=== PATIENT | female | born 1975 | race Caucasian/White ===

== ENCOUNTER 2023-08-28 18:00 | Observation (INO) ==
--- NOTE | 2023-08-28 18:30 | Emergency Department Note ---
Impression & Plan Diarrhea ED Provider Note NAME: SUDHEER ALDRIDGE AGE: 48 SEX: F : 1975 ARRIVES VIA: Ambulance INFORMANT: Patient, ED PROVIDER(S): Oscar Fagan MD CHIEF COMPLAINT: Illness HPI: This is a 48-year-old female with history of diabetes, extensive diabetic complication including neuropathy, peripheral vascular disease status post bilateral BKA, hyperlipidemia, CAD, morbid obesity presenting for generalized illness. Patient states that she recently had a left BKA and was at a facility. She was discharged from there to home. Today she noted mild abdominal discomfort, diarrhea. No shortness of breath or chest pain. She mention she had 2 stents placed about a month ago, now totaling 4 stents in her heart. She notes that she is unable to take care of herself at home as she lives alone with 2 BKA's. ROS: See above HPI for pertinent positives & negatives. A total of 10 systems reviewed and were otherwise negative. PAST MEDICAL HISTORY: See Below PAST SURGICAL HISTORY: See Below FAMILY HISTORY: See Below SOCIAL HISTORY: See Below HOME MEDICATIONS: See Below ALLERGIES: See Below VITALS: See Below PHYSICAL EXAMINATION: General: Chronically ill-appearing, morbidly obese Head: Normocephalic Eyes: Normal inspection, extraocular muscles intact Ear, nose, throat: Normal external exam Neck: Normal range of motion Respiratory: lungs clear to auscultation bilaterally Cardiovascular: Regular rate/rhythm, no murmur GI: soft, nontender, no guarding or rebound Extremities: Bilateral BKA covered and wrapped, left BKA bandages covered in feces Neuro: The patient awake and alert, appropriately conversive, no focal deficits, symmetric faces Skin: Warm, dry, and intact MEDICAL DECISION MAKING: This is a 48-year-old female with history of diabetes, diabetic complication including neuropathy, PVD, bilateral BKA, hyperlipidemia, CAD, morbid obesity presenting for generalized illness. Patient notes abdominal discomfort, diarrhea and chills. Consider viral process. Patient has numerous diabetic complications. -Will order stool PCR -Stool PCR negative, viral upper respiratory panel negative -Hemoglobin of 10.5, dehydration with sodium 132, testing 3.3, chloride 97, hyperglycemia 256, no transaminitis -Urinalysis reveals yeast, bacteria, otherwise contaminated will await culture -Patient required mission for placement, diarrhea, dehydration External records reviewed including diabetic note showing patient noncompliance of diabetic care in the past from March 2023. Differential diagnosis: Deconditioning, inability to care for self at home, diarrhea, ER treatment provided: See below Diagnostics interpreted by me: ECG: None Cardiac Monitoring: An order was placed for continuous cardiac monitoring. The monitor shows a rate of 90 with sinus rhythm Laboratory studies: As stated above and show below. Imaging studies: See below. Past Med/Surg History Medical History (Updated 08/29/23 @ 01:36 by Oscar Fagan MD) Mammography less than 12 months ago Amputated toe Social History Smoking Status: Current some day smoker Preferred Language: Welsh Feels Safe at Home: No Allergies Allergies Allergy/AdvReac Type Severity Reaction Status Date / Time morphine Allergy Intermediate Rash Verified 08/28/23 18:54 mushroom Allergy Intermediate VOMITING/DI Verified 08/28/23 18:54 ARRHEA Home Meds Home Medications Medication Instructions Recorded Confirmed atorvastatin 80 mg tablet 80 mg PO DAILY 12/28/22 08/28/23 citalopram 40 mg tablet 40 mg PO DAILY 12/28/22 08/28/23 hydroxyzine HCl 50 mg tablet 50 mg PO TID PRN Itching 12/28/22 08/28/23 lancets 33 gauge (OneTouch Delica 12/28/22 04/17/23 Lancets) pen needle, diabetic 32 gauge x 12/28/22 04/17/23 1/" (Novofine 32) aspirin 81 mg tablet,delayed 81 mg PO DAILY 04/17/23 08/28/23 release (Adult Low Dose Aspirin) acetaminophen 325 mg tablet 650 mg PO Q6H PRN Pain (Scale 08/28/23 08/28/23 Score 4-6) bupropion HCl 150 mg tablet,12 hr 150 mg PO BID 08/28/23 08/28/23 sustained-release carvedilol 12.5 mg tablet 12.5 mg PO BID 08/28/23 08/28/23 clopidogrel 75 mg tablet (Plavix) 75 mg PO DAILY 08/28/23 08/28/23 furosemide 40 mg tablet 40 mg PO DAILY 08/28/23 08/28/23 gabapentin 100 mg capsule 100 mg PO QID 08/28/23 08/28/23 insulin glargine 100 unit/mL 40 unit subcut BID 08/28/23 08/28/23 subcutaneous solution polyethylene glycol 3350 17 gram 17 g PO DAILY 08/28/23 08/28/23 oral powder packet (Miralax) promethazine 12.5 mg tablet 25 mg PO Q6H PRN NAUSEA/VOMITING 08/28/23 08/28/23 Previous Rx's Medication Instructions Recorded OneTouch Verio Flex Start #1 ea 04/18/23 (blood-glucose meter) OneTouch Verio test strips (blood #200 ea 04/18/23 sugar diagnostic) Results & Data (ED) Vital Signs Vital Signs - 24 hr 08/28/23 17:40 08/28/23 17:40 08/28/23 18:13 Temperature 36.7 C Temperature Source Oral Pulse Rate 94 H Pulse Rate [Right Finger] 90 Pulse Rhythm [Right Finger] Regular Pulse Strength [Right Finger] Normal Respiratory Rate 18 Respiratory Effort / Characteristics Non-Labored Spontaneous Respiratory Depth Normal Respiratory Pattern Regular Blood Pressure [Right Arm] 103/70 Blood Pressure Mean [Right Arm] 81 Pulse Oximetry 97 Oxygen Delivery Method Room Air Sepsis Recent Fever Within 48 Hours No Sepsis New/Unexplained Change in Mental Status No Sepsis Action Taken by Nursing No Action Required 08/28/23 22:16 Temperature Temperature Source Pulse Rate 100 H Pulse Rate [Right Finger] Pulse Rhythm [Right Finger] Pulse Strength [Right Finger] Respiratory Rate Respiratory Effort / Characteristics Respiratory Depth Respiratory Pattern Blood Pressure [Right Arm] Blood Pressure Mean [Right Arm] Pulse Oximetry Oxygen Delivery Method Sepsis Recent Fever Within 48 Hours Sepsis New/Unexplained Change in Mental Status Sepsis Action Taken by Nursing Laboratory Data 08/28/23 18:50 08/28/23 18:50 Lab Results 08/28/23 08/28/23 Range/Units 18:50 Unknown WBC 7.59 (4.8-10.8) K/ul RBC 3.53 L (4.20-5.40) M/uL Hgb 10.5 L (12.0-16.0) g/dl Hct 32.5 L (37.0-47.0) % MCV 92.1 (80.0-100.0) fL MCH 29.7 (25.0-34.0) pg MCHC 32.3 (32.0-36.0) g/dL RDW Std Deviation 50.9 H (36.4-46.3) fL RDW Coeff of Travis 15.1 H (11.5-14.5) % Plt Count 318 (130-400) K/uL MPV 12.5 H (9.4-12.4) fL Immature Gran % (Auto) 0.7 % Neut % (Auto) 60.8 % Lymph % (Auto) 25.6 % [place] % (Auto) 9.0 % Eos % (Auto) 3.4 % Baso % (Auto) 0.5 % Neut # (Auto) 4.62 (1.40-6.50) K/uL Lymph # (Auto) 1.94 (1.20-3.40) K/uL [place] # (Auto) 0.68 H (0.11-0.59) K/uL Eos # (Auto) 0.26 (0.00-0.50) K/uL Baso # (Auto) 0.04 (0.00-0.20) K/uL Immature Gran # (Auto) 0.05 (0.01-0.20) K/uL Sodium 132 L (136-145) mmol/L Potassium 3.3 L (3.5-5.1) mmol/L Chloride 97 L (98-107) mmol/L Carbon Dioxide 24 (21-32) mmol/L Anion Gap 11 (3-11) BUN 15 (6-23) mg/dl Creatinine 1.18 (0.6-1.2) mg/dl Est Cr Clr Drug Dosing Not Reportable Est GFR ( Amer) 63.2 ml/min Est GFR (Non-Af Amer) 54.5 ml/min BUN/Creatinine Ratio 12.7 (10-20) Glucose 256 H (70-99(Fasting)) mg/dl Calcium 8.4 L (8.6-10.3) mg/dl Total Bilirubin 1.0 (0.2-1.0) mg/dl AST 17 (13-39) U/L ALT 13 (7-52) U/L Alkaline Phosphatase 88 (34-104) U/L Total Protein 7.1 (6.0-8.3) gm/dl Albumin 3.4 (3.4-5.0) gm/dl Globulin 3.7 (2.5-4.0) gm/dl Albumin/Globulin Ratio 0.9 (0.9-2) Urine Color Yellow Urine Appearance Cloudy A (Clear) Urine pH 5.0 (4.5-7.5) Ur Specific [place] 1.016 (1.000-1.030) Urine Protein 2+ H (Negative) Urine Glucose (UA) Negative (Negative) Urine Ketones Negative (Negative) Urine Blood Negative (Negative) Urine Nitrite Negative (Negative) Urine Bilirubin Negative (Negative) Urine Urobilinogen Negative (Negative) Ur Leukocyte Esterase 2+ H (Negative) Urine WBC (Auto) >30 H (0-5) /hpf Urine RBC (Auto) 0-4 (0-4) /hpf U Hyaline Cast (Auto) 5-10 H (0-5) /lpf U Epithel Cells (Auto) >30 H (0-5) /lpf Urine Bacteria (Auto) Negative (Negative) Ur Renal Epithelial Cell Not Reportable Urine Yeast Budding A (None Prsent) Stl C. cayetanensis PCR Not Detected (NotDetected) Stool Rotavirus A PCR Not Detected (NotDetected) Stl Adenov F 40/41 PCR Not Detected (NotDetected) Stool Astrovirus (PCR) Not Detected (NotDetected) Stool Campylobacter PCR Not Detected (NotDetected) Stl C. diff Tox B Gene Positive Cdiff Gene H (Neg) Stl C.difficile Tox A&B Negative Cdiff Toxin (Negative) Stool Cryptosporidium PCR Not Detected (NotDetected) Stl E.coli Shiga Tox PCR Not Detected (NotDetected) Stl Enterotoxigenic E PCR Not Detected (NotDetected) Stool EPEC (PCR) Not Detected (NotDetected) Stool EAEC (PCR) Not Detected (NotDetected) Stl E. histolytica PCR Not Detected (NotDetected) Stool Giardia Lamblia PCR Not Detected (NotDetected) Stool Salmonella PCR Not Detected (NotDetected) Stool Sapovirus (PCR) Not Detected (NotDetected) Stl P. shigelloides PCR Not Detected (NotDetected) Stl Shigella/EIEC PCR Not Detected (NotDetected) St Y.enterocolitica PCR Not Detected (NotDetected) Stool Vibrio (PCR) Not Detected (NotDetected) Stl Vibrio cholerae PCR Not Detected (NotDetected) Stl Norovirus GI/GII PCR Not Detected (NotDetected) Adenovirus (PCR) Not Detected (NotDetected) B. pertussis DNA (PCR) Not Detected (NotDetected) B.parapertussis DNA PCR Not Detected (NotDetected) C. pneumoniae DNA (PCR) Not Detected (NotDetected) Coronavirus OC43 (PCR) Not Detected (NotDetected) Coronavirus HKU1 (PCR) Not Detected (NotDetected) Coronavirus 229E (PCR) Not Detected (NotDetected) SARS-CoV-2 (PCR) Not Detected (NotDetected) Coronavirus NL63 (PCR) Not Detected (NotDetected) Human Metapneumovir PCR Not Detected (NotDetected) Influenza Type A (PCR) Not Detected (NotDetected) Influenza Type B (PCR) Not Detected (NotDetected) M. pneumoniae (PCR) Not Detected (NotDetected) Parainfluenza 1 (PCR) Not Detected (NotDetected) Parainfluenza 2 (PCR) Not Detected (NotDetected) Parainfluenza 3 (PCR) Not Detected (NotDetected) Parainfluenza 4 (PCR) Not Detected (NotDetected) RSV (PCR) Not Detected (NotDetected) Entero/Rhino (PCR) Not Detected (NotDetected) Administered Medications Discontinued Medications Ioversol (Optiray 320 500ml) 100 ml IV ONCE ONE Stop: 08/29/23 00:20 Last Admin: 08/29/23 00:20 Dose: 81 ml Documented By: JOSE Imaging Data Radiologist's Impression: Chest X-Ray 08/28/23 18:21 XR chest 1V not portable HISTORY: Illness COMPARISON: None. FINDINGS: There are low lung volumes. No pneumothorax. No pleural effusions. The heart is mildly enlarged. There is diffuse interstitial thickening. This could be technical from the patient's body habitus. There is mild elevation of the right hemidiaphragm. No focal lung consolidations to suggest a pneumonia. IMPRESSION: 1. Diffuse interstitial thickening which could be technical or represent mild congestive change. 2. Mild cardiomegaly. ACT 112: Negative or not required by law. Electronically signed by: Lj Anaya M.D. 08/28/2023 7:03 PM Discharge Plan Visit Data Chief Complaint: Illness Stated Complaint: GEN. ILLNESS, RECENT LEG AMPUTEE ED Provider: Oscar Fagan Discharge Problem: Diarrhea Forms Stand Alone Forms: My [facility] Prescriptions Prescriptions: No Action aspirin [Adult Low Dose Aspirin] 81 mg tablet,delayed release (DR/EC) 81 mg PO DAILY (DME) blood-glucose meter [First [employer] Group[employer] Verio Flex Start] Kit See Rx Instructions .ROUTE .MEDSUPPLY Qty: 1 0RF Rx Instructions: As directed (DME) OneTouch Verio test strips Strip See Rx Instructions .ROUTE .MEDSUPPLY Qty: 200 3RF Rx Instructions: test 2 times daily citalopram 40 mg tablet 40 mg PO DAILY (DME) pen needle, diabetic [Novofine 32] 32 gauge x 1/4" needle See Rx Instructions .Route Rx Instructions: use 5 x daily (DME) lancets [[employer]Touch Delica Lancets] 33 gauge misc See Rx Instructions .Route Rx Instructions: test blood sugar 3 x daily atorvastatin 80 mg tablet 80 mg PO DAILY hydroxyzine HCl 50 mg tablet 50 mg PO TID PRN (Reason: Itching) furosemide 40 mg tablet 40 mg PO DAILY bupropion HCl 150 mg tablet sustained-release 12 hr 150 mg PO BID acetaminophen 325 mg tablet 650 mg PO Q6H PRN (Reason: Pain (Scale Score 4-6)) carvedilol 12.5 mg tablet 12.5 mg PO BID insulin glargine 100 unit/mL solution 40 unit SUBCUT BID polyethylene glycol 3350 [Miralax] 17 gram Powder In Packet 17 g PO DAILY promethazine 12.5 mg tablet 25 mg PO Q6H PRN (Reason: NAUSEA/VOMITING) clopidogrel [Plavix] 75 mg Tablet 75 mg PO DAILY gabapentin 100 mg Capsule 100 mg PO QID Referrals Referrals: Ryland Jeffrey DO [Primary Care Provider] -
--- NOTE | 2023-08-28 19:04 | XRay Report ---
XR chest 1V not portable HISTORY: Illness COMPARISON: None. FINDINGS: There are low lung volumes. No pneumothorax. No pleural effusions. The heart is mildly enla rged. There is diffuse interstitial thickening. This could be technical from the patient's body habit us. There is mild elevation of the right hemidiaphragm. No focal lung consolidations to suggest a pne umonia. IMPRESSION: 1. Diffuse interstitial thickening which could be technical or represent mild congestive change. 2. Mild cardiomegaly. ACT 112: Negative or not required by law. Electronically signed by: Lj Anaya M.D. 08/28/2023 7:03 PM
[2023-08-28 19:10] LABS: Appearance Urine Cloudy (Clear); Bacteria Urine Automated Negative (Negative); Bilirubin Urine Negative (Negative); Blood Urine Negative (Negative); Color Urine Yellow; Epithelial Cell Urine Auto >30 /lpf (0-5); Glucose Urine UA Negative (Negative); Ketones Urine Negative (Negative); Leukocyte Esterase Urine 2+ (Negative); Nitrite Urine Negative (Negative); Protein Urine 2+ (Negative); RBC Urine Automated 0-4 /hpf (0-4); Specific Gravity Urine 1.016 (1.000-1.030); Urobilinogen Urine Negative (Negative); WBC Urine Automated >30 /hpf (0-5)
[2023-08-28 19:12] LABS: Basophils # (auto) 0.04 K/uL (0.00-0.20); Basophils % (auto) 0.5 %; Eosinophils # (auto) 0.26 K/uL (0.00-0.50); Eosinophils % (auto) 3.4 %; Hematocrit (blood only) 32.5 % (37.0-47.0); Hemoglobin 10.5 g/dl (12.0-16.0); Immature Granulocytes # (auto) 0.05 K/uL (0.01-0.20); Immature Granulocytes % (auto) 0.7 %; Lymphocytes # (auto) 1.94 K/uL (1.20-3.40); Lymphocytes % (auto) 25.6 %; Mean Corpuscular Hemoglobin 29.7 pg (25.0-34.0); Mean Corpuscular Hgb Conc 32.3 g/dL (32.0-36.0); Mean Corpuscular Volume 92.1 fL (80.0-100.0); Mean Platelet Volume 12.5 fL (9.4-12.4); Monocytes # (auto) 0.68 K/uL (0.11-0.59); Neutrophils # (auto) 4.62 K/uL (1.40-6.50); Neutrophils % (auto) 60.8 %; Platelet Count 318 K/uL (130-400); RDW Coefficient of Variation 15.1 % (11.5-14.5); RDW Standard Deviation 50.9 fL (36.4-46.3); Red Blood Count 3.53 M/uL (4.20-5.40); White Blood Count 7.59 K/ul (4.8-10.8)
[2023-08-28 19:28] LABS: Alanine Aminotransferase 13 U/L (7-52); Albumin Globulin Ratio 0.9 (0.9-2); Albumin Level 3.4 gm/dl (3.4-5.0); Alkaline Phosphatase 88 U/L (34-104); Anion Gap 11 (3-11); Aspartate Aminotransferase 17 U/L (13-39); BUN Creatinine Ratio 12.7 (10-20); Blood Urea Nitrogen 15 mg/dl (6-23); Calcium 8.4 mg/dl (8.6-10.3); Carbon Dioxide 24 mmol/L (21-32); Chloride 97 mmol/L (98-107); Est GFR (African American) 63.2 ml/min; Est GFR (Non-African American) 54.5 ml/min; Globulin 3.7 gm/dl (2.5-4.0); Glucose 256 mg/dl (70-99(Fasting)); Potassium 3.3 mmol/L (3.5-5.1); Sodium 132 mmol/L (136-145); Total Protein 7.1 gm/dl (6.0-8.3)
[2023-08-28 20:22] LABS: Adenovirus PCR Not Detected (NotDetected); Bordetella parapertussis PCR Not Detected (NotDetected); Bordetella pertussis PCR Not Detected (NotDetected); Chlamydia pneumoniae PCR Not Detected (NotDetected); Coronavirus 229E PCR Not Detected (NotDetected); Coronavirus CoV-2 (COVID19)PCR Not Detected (NotDetected); Coronavirus HKU1 PCR Not Detected (NotDetected); Coronavirus NL63 PCR Not Detected (NotDetected); Coronavirus OC43PCR Not Detected (NotDetected); Human Metapneumovirus PCR Not Detected (NotDetected); Influenza A PCR Not Detected (NotDetected); Influenza B PCR Not Detected (NotDetected); Mycoplasma pneumoniae PCR Not Detected (NotDetected); Parainfluenza Virus 1 PCR Not Detected (NotDetected); Parainfluenza Virus 2 PCR Not Detected (NotDetected); Parainfluenza Virus 3 PCR Not Detected (NotDetected); Parainfluenza Virus 4 PCR Not Detected (NotDetected); Respiratory Syncytial VirusPCR Not Detected (NotDetected); Rhinovirus/Enterovirus PCR Not Detected (NotDetected)
[2023-08-28 22:03] LABS: Adenovirus F 40/41 PCR Not Detected (NotDetected); Astrovirus PCR Not Detected (NotDetected); Campylobacter PCR Not Detected (NotDetected); Cryptosporidium PCR Not Detected (NotDetected); Cyclospora cayetanensis PCR Not Detected (NotDetected); Entamoeba histolytica PCR Not Detected (NotDetected); Enteroaggregative E.coli(EAEC) Not Detected (NotDetected); Enteropathogenic E.coli (EPEC) Not Detected (NotDetected); Enterotoxigenic E.coli (ETEC) Not Detected (NotDetected); Giardia lamblia PCR Not Detected (NotDetected); Norovirus GI/GII PCR Not Detected (NotDetected); Plesiomonas shigelloides PCR Not Detected (NotDetected); Rotavirus A PCR Not Detected (NotDetected); Salmonella PCR Not Detected (NotDetected); Sapovirus PCR Not Detected (NotDetected); Shiga-like Toxin E.coli (STEC) Not Detected (NotDetected); Shigella/Enteroinvasive E.coli Not Detected (NotDetected); Vibrio cholerae PCR Not Detected (NotDetected); Vibrio species PCR Not Detected (NotDetected); Yersinia enterocolitica PCR Not Detected (NotDetected)
--- NOTE | 2023-08-28 22:38 | History & Physical Report ---
Date of Service August 28, 2023 Assessment & Plan (1) Abdominal pain: Plan: -Suspect this is driven by viral GI illness though given pt's multiple comorbidities including uncontrolled DM2 w/ complications, this may be contributory as well -Reassuring that pt is hemodynamically stable, afebrile and without leukocytosis, though with LLQ tenderness on exam, will obtain CTAP to r/o organ pathology including diverticulitis -Tylenol PRN pain (2) Diarrhea: Plan: -Watery diarrhea accompanying aforementioned abdominal pain -GI panel pending including clostridial testing -CTAP as above -Fluid repletion ongoing due to GI losses -Monitor BMP, electrolytes (3) Unable to care for self: Plan: -Pt has not been able to accomplish ADLs especially following her second BKA, now b/l BKA and living alone with generalized weakness and multiple comorbidities -PT/OT, anticipate need for SNF (4) Diabetes mellitus type 2 with complications: Plan: -Poorly controlled DM2 w/ multiple complications including nephropathy and neuropathy along with PAD s/p b/l BKA -See last diabetes visit note from endocrinology for further information -Last A1C 9.2% in 12/2022, will repeat in AM -Continue gabapentin, Celexa for neuropathy -Lantus, SSI in hospital (5) Coronary artery disease: Plan: -CAD s/p PCI w/ TARIK, currently 4 stents -No ACS concern at present given lack of chest pain and reassuring EKG on admis magdi -Continue carvedilol, Plavix, aspirin, atorvastatin (6) Hyperlipidemia: Plan: -Continue atorvastatin (7) Hypertension: Plan: -BP stable at present -Continue carvedilol (8) Depression with anxiety: Plan: -Continue Celexa, Wellbutrin -Home Atarax PRN anxiety (used for itching per medication list) (9) Pulmonary vascular congestion: Plan: -Noted on CXR w/ mild cardiomegaly + interstitial thickening -As pt is currently w/o respiratory complaints and saturating well on RA w/ clear lung exam, will defer any diuresis beyond home Lasix (10) Hypokalemia: Plan: -Mild hypokalemia 3.3 on admission -Repleted with oral K -Monitor BMP, will check Mg as well (11) Hyponatremia: Plan: -Mild hyponatremia 132 on admission -Likely due to dehydration -Fluid repletion ongoing -Monitor BMP (12) Anemia: Plan: -Hgb 10.5 on admission, normocytic -Likely anemia for chronic disease though her baseline is unclear from chart due to minimal data -No suspected bleeding at present -Iron panel added to AM labs Plan FENGI: DM2 Code status: Full DVT prophylaxis: Lovenox BID Isolation: None Unit: Medical/surgical Disposition planning: Likely SNF History of Present Illness Chief Complaint: Generalized weakness Primary Care Provider: Ryland Jeffrey DO Pt is 48 yo F with PMH IDDM2 w/ nephropathy + neuropathy, PAD s/p b/l BKA (R 2019, L 07/2023), HTN, HLD, CAD s/p PCI w/ TARIK x4, depression, anxiety, morbid obesity presenting with generalized weakness. Pt reports onset of generalized weakness and pain, diffuse mild abdominal pain and watery diarrhea on day prior. She did recently have L BKA done at end of 07/2023 and was discharged from rehab to home, also had PR s/p PCI w/ stent placement x2 about 1 month prior. Pt states she has not been feeling well for quite some time but her GI symptoms are new and this is primarily why she came to ER. Denies fever, chills, chest pain, dyspnea. Pt arrived to ER hemodynamically stable. Initial evaluation significant for Hgb 10.5, Na 132, K 3.3, BSG 256. UA grossly infected though without bacteria, containing epithelial cells. RVP negative. CXR w/ mild cardiomegaly and inter stitial thickening, pulmonary vascular congestion. No ER interventions done. At present, pt reports no new symptoms. Allergies Allergy/AdvReac Type Severity Reaction Status Date / Time morphine Allergy Intermediate Rash Verified 08/28/23 18:54 mushroom Allergy Intermediate VOMITING/DI Verified 08/28/23 18:54 ARRHEA Home Medications Medication Instructions Recorded Confirmed Type atorvastatin 80 mg tablet 80 mg PO DAILY 12/28/22 08/28/23 History citalopram 40 mg tablet 40 mg PO DAILY 12/28/22 08/28/23 History hydroxyzine HCl 50 mg tablet 50 mg PO TID PRN Itching 12/28/22 08/28/23 History lancets 33 gauge (OneTouch Delica 12/28/22 04/17/23 History Lancets) pen needle, diabetic 32 gauge x 12/28/22 04/17/23 History 1/4" (Novofine 32) aspirin 81 mg tablet,delayed 81 mg PO DAILY 04/17/23 08/28/23 History release (Adult Low Dose Aspirin) OneTouch Verio Flex Start #1 ea 04/18/23 04/18/23 Rx (blood-glucose meter) OneTouch Verio test strips (blood #200 ea 04/18/23 04/18/23 Rx sugar diagnostic) acetaminophen 325 mg tablet 650 mg PO Q6H PRN Pain (Scale 08/28/23 08/28/23 History Score 4-6) bupropion HCl 150 mg tablet,12 hr 150 mg PO BID 08/28/23 08/28/23 History sustained-release carvedilol 12.5 mg tablet 12.5 mg PO BID 08/28/23 08/28/23 History clopidogrel 75 mg tablet (Plavix) 75 mg PO DAILY 08/28/23 08/28/23 History furosemide 40 mg tablet 40 mg PO DAILY 08/28/23 08/28/23 History gabapentin 100 mg capsule 100 mg PO QID 08/28/23 08/28/23 History insulin glargine 100 unit/mL 40 unit subcut BID 08/28/23 08/28/23 History subcutaneous solution polyethylene glycol 3350 17 gram 17 g PO DAILY 08/28/23 08/28/23 History oral powder packet (Miralax) promethazine 12.5 mg tablet 25 mg PO Q6H PRN NAUSEA/VOMITING 08/28/23 08/28/23 History Past Med/Surg History Medical History (Updated 08/29/23 @ 01:36 by Oscar Fagan MD) Mammography less than 12 months ago Amputated toe Social History Smoking Status: Current every day smoker Tobacco Type: Cigarettes Cigarettes Per Day: a couple cigarettes a day; Hx Alcohol Use: Yes Hx Substance Use: No Preferred Language: Portuguese Communication Ability: Effective Payable Processor Required: No Beliefs That Will Affect Care: None Current Living Situation: Alone Feels Safe at Home: Yes Safety Concerns: Feels Safe At This Time Assistive Devices: Cane, Walker and Wheelchair Assistive Devices Comment: prosthesis right lower extremity Review of Systems Review of Systems: Per HPI/Subjective Physical Exam Physical Exam: General: tired-appearing, no acute distress HEENT: PERRL, EOMI, conjunctivae clear without injection, anicteric sclerae, dry mucous membranes, clear oropharynx without exudate or erythema Neck: supple, trachea midline, no thyromegaly, no JVD, no cervical lymphadenopathy CV: RRR, normal S1 and S2, no murmurs Resp: Clear breath sounds b/l, no increased work of breathing, no crackles or wheezes Abd: Soft, mildly tender to LLQ, nondistended, no guarding or rebound, no hepatosplenomegaly MSK: B/l BKA with RLE stump covered in dressing, L BKA exposed and clean, dry, intact wound + sutures without bleeding Neuro: AOx3 Skin: no rashes or lesions, warm and dry Results & Data Results & Data Vital Signs (Past 12 Hours) Vital Signs Temp Pulse Pulse Resp BP Pulse Ox O2 Del Method 08/28/23 22:16 100 H 08/28/23 18:13 94 H 08/28/23 17:40 36.7 C 90 18 103/70 97 Room Air Supervising Physician Co-Signing Physician Notes Attending addendum: I have physically seen this patient, have supervised the medical residents activities, and agree with the H&P unless as otherwise noted. Assessment and Plan: Diarrhea/abdominal pain- CT scan abdomen and pelvis ordered and pending Stool PCR pending BioFire pending Supportive treatment with IV fluids Follow serial renal function panel Diabetes mellitus type 2- Accompanying nephropathy and neuropathy History of PAD with bilateral BKA's General debilitation/unable to care for herself Status post bilateral BKA's, with decreased ability to perform ADLs Consult PT/OT Consult social service agency director Will need to be [facility] in [facility] placement with [facility] facility CAD/hypertension/PCI with TARIK/total 4 stents Continue carvedilol, clopidogrel, aspirin and atorvastatin Remaining orders and notations as noted Resident Activity Tracking Resident Involvement: Resident Care Provided Care Provided: Adult [facility] Medicine
[2023-08-29] MEDS: OPTIRAY 320 500ml IV ONE (00:20)
[2023-08-29 00:40] LABS: Cdiff Toxin B Gene (2yr or >) Positive Cdiff Gene (Neg)
[2023-08-29 01:07] LABS: Cdiff Antigen Negative; Cdiff Toxin A+B Negative Cdiff Toxin (Negative)
[2023-08-29] MEDS ORDERED: PROMETHAZINE HCL 25 MG TAB PO PRN (02:01)
[2023-08-29] MEDS ORDERED: GLUCAGON FOR INJ 1 MG VIAL SQ PRN (02:01)
[2023-08-29] MEDS ORDERED: GLUCOSE 10 TAB/TUBE PO PRN (02:01)
[2023-08-29] MEDS ORDERED: CARBOHYDRATES FOR HYPOGLYCEMIA PO PRN (02:01)
[2023-08-29] MEDS: Patient's HEIGHT &/or WEIGHT Needed STA (02:19)
--- NOTE | 2023-08-29 02:40 | CT Scan Report ---
Exam(s): CT ABDOMEN + PELVIS With Contrast IV Amt: 81 ML OPTIRAY 320 EXAM: CT Abdomen and Pelvis With Intravenous Contrast CLINICAL HISTORY: Reason for exam: LLQ pain, evaluate diverticulitis. TECHNIQUE: Axial computed tomography images of the abdomen and pelvis with intravenous contrast. CTDI is 34.95 mGy and DLP is 1922.42 mGy-cm. Automated exposure control was utilized for the study. A dose lowering technique was utilized adhering to the principles of ALARA. CONTRAST: Patient received 81 ML OPTIRAY 320 of IV contrast COMPARISON: No relevant prior studies available. FINDINGS: Lung bases: Smooth septal thickening in the lung bases concerning for fluid overload. Peripheral nodular densities in the right middle lobe measuring up to 0.9 cm. No consolidation. ABDOMEN: Liver: Unremarkable. No mass. Gallbladder and bile ducts: Unremarkable. No calcified stones. No ductal dilation. Pancreas: Unremarkable. No mass. No ductal dilation. Spleen: Unremarkable. No splenomegaly. Adrenals: Unremarkable. No mass. Kidneys and ureters: Unremarkable. No solid mass. No hydronephrosis. Stomach and bowel: Unremarkable. No obstruction. No mucosal thickening. PELVIS: Appendix: No findings to suggest acute appendicitis. Bladder: Unremarkable. No mass. Reproductive: Unremarkable as visualized. ABDOMEN and PELVIS: Intraperitoneal space: Unremarkable. No free air. No significant fluid collection. Bones/joints: No acute fracture. No dislocation. Soft tissues: Unremarkable. Vasculature: Unremarkable. No abdominal aortic aneurysm. Lymph nodes: Unremarkable. No enlarged lymph nodes. IMPRESSION: 1. No acute abdominal or pelvic process. 2. Smooth septal thickening in the lung bases concerning for fluid overload. 3. Peripheral nodular densities in the right middle lobe measuring up to 0.9 cm. Electronically signed by: Anselmo Fagan M.D. 08/29/23 02:39 AM
[2023-08-29] MEDS: LACTATED RINGER'S 1,000 ML IV SCH (02:43)
[2023-08-29] MEDS: POTASSIUM CHLORIDE CRTAB 20 MEQ TABCR PO STA ×2 (02:43→08:47)
[2023-08-29] MEDS: FUROSEMIDE INJ 20 MG/2 ML VIAL IV ONE (05:54)
[2023-08-29 06:08] LABS: Hematocrit (blood only) 30.8 % (37.0-47.0); Hemoglobin 9.8 g/dl (12.0-16.0); Mean Corpuscular Hemoglobin 29.3 pg (25.0-34.0); Mean Corpuscular Hgb Conc 31.8 g/dL (32.0-36.0); Mean Corpuscular Volume 91.9 fL (80.0-100.0); Mean Platelet Volume 12.3 fL (9.4-12.4); Platelet Count 282 K/uL (130-400); RDW Coefficient of Variation 15.2 % (11.5-14.5); RDW Standard Deviation 50.8 fL (36.4-46.3); Red Blood Count 3.35 M/uL (4.20-5.40); White Blood Count 6.63 K/ul (4.8-10.8)
[2023-08-29 06:21] LABS: Calcium 8.4 mg/dl (8.6-10.3); Creatinine Clr Calc Pharmacy 86.3 ml/min; Est GFR (African American) 70.3 ml/min; Est GFR (Non-African American) 60.7 ml/min; Magnesium 1.6 mg/dl (1.7-2.4); Phosphorus 4.9 mg/dl (2.5-4.9); Potassium 3.3 mmol/L (3.5-5.1)
[2023-08-29 06:38] LABS: Ferritin 206.5 ng/ml (8-388)
[2023-08-29 06:57] LABS: Estimated Average Glucose 180 mg/dl; Hemoglobin A1C 7.9 % (4.5-5.6)
[2023-08-29] MEDS: INSULIN ASPART PER UNIT CHARGE SC SCH (08:30)
[2023-08-29] MEDS: MAGNESIUM SULFATE / D5W 1 GM/100 ML BAG IV SCH (08:47)
[2023-08-29] MEDS: GABAPENTIN 100 MG CAP PO SCH (08:48)
[2023-08-29] MEDS: ASPIRIN 81 MG ECTAB PO SCH (08:48)
[2023-08-29] MEDS: CITALOPRAM 40 MG TAB PO SCH (08:48)
[2023-08-29] MEDS: FUROSEMIDE 40 MG TAB PO SCH (08:48)
[2023-08-29] MEDS: carvediloL 12.5 MG TAB PO SCH (08:48)
[2023-08-29] MEDS: buPROPion SR 150 MG TABCR PO SCH (08:48)
[2023-08-29] MEDS: CLOPIDOGREL BISULFATE 75 MG TAB PO SCH (08:49)
[2023-08-29] MEDS: ENOXAPARIN INJ 40 MG/0.4 ML SYR SQ SCH (08:49)
[2023-08-29] MEDS: ATORVASTATIN 40 MG TAB PO SCH (08:49)
[2023-08-29] MEDS: POLYETHYLENE (MIRALAX) 17 GM PACK PO SCH (08:50)
[2023-08-29] MEDS: LANTUS PER UNIT CHARGE SQ SCH (08:50)
--- NOTE | 2023-08-29 10:05 | Hospitalist Progress Note ---
Date of Service August 29, 2023 Assessment & Plan (1) Abdominal pain: Plan: -CT of abdomen/Pelvis revealed Smooth septal thickening in the lung bases concerning for fluid overload and Peripheral nodular densities in the right middle lung lobe measuring up to 0.9 cm. -This could be driven by GI illness, patients multiple comorbidities including uncontrolled DM2 with complications, and patients medications -Reassuring that pt is hemodynamically stable, afebrile and without leukocytosis, though with lower quadrant abdominal tenderness on exam -Tylenol PRN pain -Patient will receive 500 cc bolus (2) Diarrhea: Plan: -Watery diarrhea accompanying aforementioned abdominal pain -GI panel positive for C. difficile although patient's symptoms are more mild, she could be a C. Diff carrier -CTAP as above -Fluid repletion ongoing due to GI losses -Monitor BMP, electrolytes (3) Unable to care for self: Plan: -Pt has not been able to accomplish ADLs especially following her second BKA, now b/l BKA and living alone with generalized weakness and multiple comorbidities -PT/OT consulted, anticipate need for SNF (4) Diabetes mellitus type 2 with complications: Plan: -Poorly controlled DM2 w/ multiple complications including nephropathy and neuropathy along with PAD s/p b/l BKA. See last diabetes visit note from endocrinology for further information -Last A1C 9.2% in 12/2022, current A1C from 08/29 is at 7.9 -Continue gabapentin, Celexa for neuropathy -Lant, SSI in hospital (5) Coronary artery disease: Plan: -CAD s/p PCI w/ TARIK, currently 4 stents -No ACS concern at present given lack of chest pain and reassuring EKG on admission -Echocardiogram done and revealed no regional wall abnormalities with normal left ventricular systolic function and EF= 55-60%. There was borderline concentric left ventricular hypertrophy and mild mitral regurgitation. -Continue carvedilol, Plavix, aspirin, atorvastatin (6) Hyperlipidemia: Plan: -Continue atorvastatin (7) Hypertension: Plan: -BP stable at present -Continue carvedilol (8) Depression with anxiety: Plan: -Continue Celexa, Wellbutrin -Home Atarax PRN anxiety (used for itching per medication list) (9) Pulmonary vascular congestion: Plan: -Noted on CXR w/ mild cardiomegaly + interstitial thickening -As pt is currently w/o respiratory complaints and saturating well on RA w/ clear lung exam, will defer any diuresis beyond home Lasix (10) Hypokalemia: Plan: -Mild hypokalemia 3.3 and magnesium at 1.6 -Repleted with oral K -Monitor BMP (11) Hyponatremia: Plan: -Mild hyponatremia 132 on admission, but trending upward and currently at 134 -Likely due to dehydration and Fluid repletion ongoing -Monitor BMP (12) Anemia: Plan: -Hgb 10.5 on admission and currently at 9.8 -Likely anemia for chronic disease though her baseline is unclear; Iron is at 34 and Ferritin at 206.5 -No suspected bleeding at present -Iron panel added to AM labs Plan FENGI: DM2 Code status: Full DVT prophylaxis: Lovenox BID Isolation: None Unit: Medical/surgical Disposition planning: Likely SNF Admission and Anticipated Discharge Date Admission Date: August 28, 2023 Supervising Physician Co-Signing Physician Notes I personally examined the patient and verified all iverson points of history and exam, discussed case, and agree with decision making with Dr Soto and Mercedes Duggan MS2 Pain in her leg, loose stools? Versus more frequent stools 3 times so far todayshe has not looked but notes that it feels solid, she had apparent diarrhea in the ambulance on the way in. No significant fevers chills or sweats. Feels significant fatigue. Has a vague degree of shortness of breath on exertion is not really better or worse otherwise at any period of time, has been getting fluids over the last half hour or so and her breathing has not been feeling worse. Vitals noted, in general she is extremely fatigued but otherwise no distress. HEENT normocephalic atraumatic mucous membranes moist. Abdomen is soft may be mild diffuse tenderness no guarding rebound or rigidity. Left lower extremity stump wound appears to be healing well there are a large amount of izaiah, no fluctuance no tenderness no erythema. leg pain - nothing appearing overtly concerning. pain control, obtain records - there are a lot of izaiah, i wonder if a good deal of pain is regular wound healing for large area + izaiah pulling? follow abdominal symptoms - hard to really gauge diarrhea vs abnormal stool pattern for her/favor loose? stool testing most c/w Cdiff carrier and symptoms also not c/w active infection - follow/serial exams fatigue - PT/OT eval and treat does not appear to have clinically significant pulmonary edema, suspect she is dry, breathing did not worsen with small fluid bolus. may need to continue IV fluids - follow. suspect dyspnea is more borne of fatigue/deconditioning. otherwise as above Subjective Florinda Hill is a 48 yo F with PMH Type 2 Diabetes w/ nephropathy, peripheral vascular disease status post bilateral below knee amputation (R 2019, L 07/2023), HTN, HLD, CAD s/p PCI w/ TARIK x4, depression, anxiety, morbid obesity presenting with generalized weakness. Pt reports onset of generalized weakness and pain, diffuse mild abdominal pain and watery diarrhea on day prior. She did recently have L below knee amputation done at the end of 07/2023 and was discharged from rehab to home, also had IN s/p PCI w/ stent placement x2 about 1 month prior. Pt states she has not been feeling well for quite some time but her GI symptoms are new and this is primarily why she came to ER. Denies fever, chills, chest pain, dyspnea. Pt arrived to ER hemodynamically stable. Initial evaluation significant for Hgb 10.5, Na 132, K 3.3, blood glucose 256. UA grossly infected though without bacteria, containing epithelial cells. RVP negative. CXR w/ mild cardiomegaly and interstitial thickening, pulmonary vascular congestion. No ER interventions done. Currently, patient reports generalized weakness, she is not able to ambulate due to the weakness. She has had nausea and vomiting in the morning for years and usually feels better after a few hours in the morning. Although blood was found in her stools, patient reports that she does not know how long this has persisted. She feels shortness of breath upon any kind of movement. She also has generalized lower abdominal pain that is non specific. She is not sure if this pain or her symptoms worsen before or after eating. Patient denies dysuria, urinary retention, urinary urgency, and hematuria. Review of Systems Review of Systems: General: Reports fatigue, generalized pain, and weakness. Denies fevers, chills, unintentional weightloss Respiratory: Reports shortness of breath upon any kind of exertion or movement. Denies cough and chest pain Cardiovascular: Denies lower extremity edema and palpitations MSK: Patient has bilateral BKA. Reports generalized weakness. Denies joint pains. GI: Reports mild abdominal pain, watery diarrhea, nausea, and vomiting. : Denies dysuria, retention, hematuria Skin: Patient did have a recent left sided BKA with some izaiah still present. Denies rashes, lesions, moles, and skin concerns Heme/Lymph: Denies bruising and bleeding Physical Exam Physical Exam: General: Patient is a tired appearing female, awake, alert, and oriented, in no acute distress Eye: PERRL (pupils equal and responsive to light), EOMI (extraocular motions intact) HEENT: normocephalic, atraumatic, no lymphadenopathy, trachea midline, no JVD Respiratory: lungs CTA, BS equal, symmetrical expansion, no rales, rhonchi or wheezing CV: normal rate and rhythm, no murmurs, rubs, or gallops, no edema, capillary refill < 2s GI: Non-specific pain upon palpation in her lower abdominal quadrant. normal bowel sounds, abdomen soft, non-distended, no organomegaly : no CVA tenderness Integumentary: No rashes, lesions, warm and dry Neurologic: alert and oriented Psychiatric: calm and cooperative, appropriate mood and affect Results & Data Results & Data Vital Signs (Past 12 Hours) Vital Signs Temp Pulse Pulse Pulse Resp BP Pulse Ox 08/29/23 07:37 36.4 C L 96 H 18 117/77 94 08/29/23 03:00 08/29/23 02:02 36.8 C 86 18 118/78 98 08/28/23 22:16 100 H O2 Del Method 08/29/23 07:37 Room Air 08/29/23 03:00 Room Air 08/29/23 02:02 Room Air 08/28/23 22:16 Laboratory Results 08/29/23 08/29/23 08/28/23 07:36 05:31 Unknown WBC 6.63 RBC 3.35 L Hgb 9.8 L Hct 30.8 L MCV 91.9 MCH 29.3 MCHC 31.8 L RDW Std Deviation 50.8 H RDW Coeff of Travis 15.2 H Plt Count 282 MPV 12.3 Immature Gran % (Auto) Neut % (Auto) Lymph % (Auto) [place] % (Auto) Eos % (Auto) Baso % (Auto) Neut # (Auto) Lymph # (Auto) [place] # (Auto) Eos # (Auto) Baso # (Auto) Immature Gran # (Auto) Sodium 134 L Potassium 3.3 L Chloride 99 Carbon Dioxide 25 Anion Gap 10 BUN 13 Creatinine 1.08 Est Cr Clr Drug Dosing 86.3 Est GFR ( Amer) 70.3 Est GFR (Non-Af Amer) 60.7 BUN/Creatinine Ratio 12.0 Glucose 194 H POC Glucose 170 H Estimat Average Glucose 180 Hemoglobin A1c 7.9 H Calcium 8.4 L Phosphorus 4.9 Magnesium 1.6 L Iron 34 L Ferritin 206.5 Total Bilirubin AST ALT Alkaline Phosphatase Total Protein Albumin Globulin Albumin/Globulin Ratio Urine Color Urine Appearance Urine pH Ur Specific [place] Urine Protein Urine Glucose (UA) Urine Ketones Urine Blood Urine Nitrite Urine Bilirubin Urine Urobilinogen Ur Leukocyte Esterase Urine WBC (Auto) Urine RBC (Auto) U Hyaline Cast (Auto) U Epithel Cells (Auto) Urine Bacteria (Auto) Ur Renal Epithelial Cell Urine Yeast Stl C. cayetanensis PCR Stool Rotavirus A PCR Stl Adenov F 40/41 PCR Stool Astrovirus (PCR) Stool Campylobacter PCR Stl C. diff Tox B Gene Stl C.difficile Tox A&B Stool Cryptosporidium PCR Stl E.coli Shiga Tox PCR Stl Enterotoxigenic E PCR Stool EPEC (PCR) Stool EAEC (PCR) Stl E. histolytica PCR Stool Giardia Lamblia PCR Stool Salmonella PCR Stool Sapovirus (PCR) Stl P. shigelloides PCR Stl Shigella/EIEC PCR St Y.enterocolitica PCR Stool Vibrio (PCR) Stl Vibrio cholerae PCR Stl Norovirus GI/GII PCR Adenovirus (PCR) Not Detected B. pertussis DNA (PCR) Not Detected B.parapertussis DNA PCR Not Detected C. pneumoniae DNA (PCR) Not Detected Coronavirus OC43 (PCR) Not Detected Coronavirus HKU1 (PCR) Not Detected Coronavirus 229E (PCR) Not Detected SARS-CoV-2 (PCR) Not Detected Coronavirus NL63 (PCR) Not Detected Human Metapneumovir PCR Not Detected Influenza Type A (PCR) Not Detected Influenza Type B (PCR) Not Detected M. pneumoniae (PCR) Not Detected Parainfluenza 1 (PCR) Not Detected Parainfluenza 2 (PCR) Not Detected Parainfluenza 3 (PCR) Not Detected Parainfluenza 4 (PCR) Not Detected RSV (PCR) Not Detected Entero/Rhino (PCR) Not Detected 12/06/23 18:50 WBC 7.59 RBC 3.53 L Hgb 10.5 L Hct 32.5 L MCV 92.1 MCH 29.7 MCHC 32.3 RDW Std Deviation 50.9 H RDW Coeff of Travis 15.1 H Plt Count 318 MPV 12.5 H Immature Gran % (Auto) 0.7 Neut % (Auto) 60.8 Lymph % (Auto) 25.6 [place] % (Auto) 9.0 Eos % (Auto) 3.4 Baso % (Auto) 0.5 Neut # (Auto) 4.62 Lymph # (Auto) 1.94 [place] # (Auto) 0.68 H Eos # (Auto) 0.26 Baso # (Auto) 0.04 Immature Gran # (Auto) 0.05 Sodium 132 L Potassium 3.3 L Chloride 97 L Carbon Dioxide 24 Anion Gap 11 BUN 15 Creatinine 1.18 Est Cr Clr Drug Dosing Not Reportable Est GFR ( Amer) 63.2 Est GFR (Non-Af Amer) 54.5 BUN/Creatinine Ratio 12.7 Glucose 256 H POC Glucose Estimat Average Glucose Hemoglobin A1c Calcium 8.4 L Phosphorus Magnesium Iron Ferritin Total Bilirubin 1.0 AST 17 ALT 13 Alkaline Phosphatase 88 Total Protein 7.1 Albumin 3.4 Globulin 3.7 Albumin/Globulin Ratio 0.9 Urine Color Yellow Urine Appearance Cloudy A Urine pH 5.0 Ur Specific [place] 1.016 Urine Protein 2+ H Urine Glucose (UA) Negative Urine Ketones Negative Urine Blood Negative Urine Nitrite Negative Urine Bilirubin Negative Urine Urobilinogen Negative Ur Leukocyte Esterase 2+ H Urine WBC (Auto) >30 H Urine RBC (Auto) 0-4 U Hyaline Cast (Auto) 5-10 H U Epithel Cells (Auto) >30 H Urine Bacteria (Auto) Negative Ur Renal Epithelial Cell Not Reportable Urine Yeast Budding A Stl C. cayetanensis PCR Not Detected Stool Rotavirus A PCR Not Detected Stl Adenov F 40/41 PCR Not Detected Stool Astrovirus (PCR) Not Detected Stool Campylobacter PCR Not Detected Stl C. diff Tox B Gene Positive Cdiff Gene H Stl C.difficile Tox A&B Negative Cdiff Toxin Stool Cryptosporidium PCR Not Detected Stl E.coli Shiga Tox PCR Not Detected Stl Enterotoxigenic E PCR Not Detected Stool EPEC (PCR) Not Detected Stool EAEC (PCR) Not Detected Stl E. histolytica PCR Not Detected Stool Giardia Lamblia PCR Not Detected Stool Salmonella PCR Not Detected Stool Sapovirus (PCR) Not Detected Stl P. shigelloides PCR Not Detected Stl Shigella/EIEC PCR Not Detected St Y.enterocolitica PCR Not Detected Stool Vibrio (PCR) Not Detected Stl Vibrio cholerae PCR Not Detected Stl Norovirus GI/GII PCR Not Detected Adenovirus (PCR) B. pertussis DNA (PCR) B.parapertussis DNA PCR C. pneumoniae DNA (PCR) Coronavirus OC43 (PCR) Coronavirus HKU1 (PCR) Coronavirus 229E (PCR) SARS-CoV-2 (PCR) Coronavirus NL63 (PCR) Human Metapneumovir PCR Influenza Type A (PCR) Influenza Type B (PCR) M. pneumoniae (PCR) Parainfluenza 1 (PCR) Parainfluenza 2 (PCR) Parainfluenza 3 (PCR) Parainfluenza 4 (PCR) RSV (PCR) Entero/Rhino (PCR) Diagnostic Findings Chest X-Ray 08/28/23 18:21 XR chest 1V not portable HISTORY: Illness COMPARISON: None. FINDINGS: There are low lung volumes. No pneumothorax. No pleural effusions. The heart is mildly enlarged. There is diffuse interstitial thickening. This could be technical from the patient's body habitus. There is mild elevation of the right hemidiaphragm. No focal lung consolidations to suggest a pneumonia. IMPRESSION: 1. Diffuse interstitial thickening which could be technical or represent mild congestive change. 2. Mild cardiomegaly. ACT 112: Negative or not required by law. Electronically signed by: Lj Anaya M.D. 08/28/2023 7:03 PM Abdomen/Pelvis CT 08/28/23 23:38 Exam(s): CT ABDOMEN + PELVIS With Contrast IV Amt: 81 ML OPTIRAY 320 EXAM: CT Abdomen and Pelvis With Intravenous Contrast CLINICAL HISTORY: Reason for exam: LLQ pain, evaluate diverticulitis. TECHNIQUE: Axial computed tomography images of the abdomen and pelvis with intravenous contrast. CTDI is 34.95 mGy and DLP is 1922.42 mGy-cm. Automated exposure control was utilized for the study. A dose lowering technique was utilized adhering to the principles of ALARA. CONTRAST: Patient received 81 ML OPTIRAY 320 of IV contrast COMPARISON: No relevant prior studies available. FINDINGS: Lung bases: Smooth septal thickening in the lung bases concerning for fluid overload. Peripheral nodular densities in the right middle lobe measuring up to 0.9 cm. No consolidation. ABDOMEN: Liver: Unremarkable. No mass. Gallbladder and bile ducts: Unremarkable. No calcified stones. No ductal dilation. Pancreas: Unremarkable. No mass. No ductal dilation. Spleen: Unremarkable. No splenomegaly. Adrenals: Unremarkable. No mass. Kidneys and ureters: Unremarkable. No solid mass. No hydronephrosis. Stomach and bowel: Unremarkable. No obstruction. No mucosal thickening. PELVIS: Appendix: No findings to suggest acute appendicitis. Bladder: Unremarkable. No mass. Reproductive: Unremarkable as visualized. ABDOMEN and PELVIS: Intraperitoneal space: Unremarkable. No free air. No significant fluid collection. Bones/joints: No acute fracture. No dislocation. Soft tissues: Unremarkable. Vasculature: Unremarkable. No abdominal aortic aneurysm. Lymph nodes: Unremarkable. No enlarged lymph nodes. IMPRESSION: 1. No acute abdominal or pelvic process. 2. Smooth septal thickening in the lung bases concerning for fluid overload. 3. Peripheral nodular densities in the right middle lobe measuring up to 0.9 cm. Electronically signed by: Anselmo Fagan M.D. 08/29/23 02:39 AM
--- NOTE | 2023-08-29 14:07 | Electrocardiogram Report ---
Test Reason : Blood Pressure : / mmHG Vent. Rate : 095 BPM Atrial Rate : 095 BPM P-R Int : 164 ms QRS Dur : 092 ms QT Int : 378 ms P-R-T Axes : 040 047 094 degrees QTc Int : 475 ms Sinus rhythm with Premature supraventricular complexes and with occasional Premature ventricular comp lexes Low voltage QRS Septal infarct , age undetermined Abnormal ECG No previous ECGs available Confirmed by Arnol Florez ([id number]) on 08/29/2023 2:07:00 PM Referred By: REFERRED SELF Confirmed By:Arnol Florez
--- NOTE | 2023-08-29 14:45 | XCELERA ---
[id number]
[2023-08-29] MEDS: ACETAMINOPHEN 325 MG TAB PO PRN (15:02)
[2023-08-29] MEDS: hydrOXYzine HCl 25 MG TAB PO PRN (15:03)
[2023-08-29] MEDS: SODIUM CHLORIDE 0.9% 500 ML IV ONE (15:04)
--- NOTE | 2023-08-29 19:27 | Billing Data ---
Date of Service August 29, 2023 Coding Level of Care Code 38578 SUB INP/OBS CARE MIN
--- NOTE | 2023-08-30 05:38 | Billing Data ---
Date of Service August 30, 2023 Coding Level of Care Code 08257 INT INP/OBS CARE
[2023-08-30 07:03] LABS: Hematocrit (blood only) 31.2 % (37.0-47.0); Hemoglobin 9.9 g/dl (12.0-16.0); Mean Corpuscular Hemoglobin 29.4 pg (25.0-34.0); Mean Corpuscular Hgb Conc 31.7 g/dL (32.0-36.0); Mean Corpuscular Volume 92.6 fL (80.0-100.0); Mean Platelet Volume 12.3 fL (9.4-12.4); Platelet Count 261 K/uL (130-400); RDW Coefficient of Variation 15.1 % (11.5-14.5); RDW Standard Deviation 51.6 fL (36.4-46.3); Red Blood Count 3.37 M/uL (4.20-5.40); White Blood Count 8.24 K/ul (4.8-10.8)
[2023-08-30 07:24] LABS: BUN Creatinine Ratio 12.7 (10-20); Calcium 8.4 mg/dl (8.6-10.3); Est GFR (African American) 63.2 ml/min; Est GFR (Non-African American) 54.5 ml/min
[2023-08-30] MEDS: oxyCODONE HCL IR 5 MG TAB (IMMEDIATE RELEASE) PO PRN (08:38)
--- NOTE | 2023-08-30 09:48 | Hospitalist Progress Note ---
Date of Service August 30, 2023 Assessment & Plan (1) Abdominal pain: Plan: -As per patient, this has been mostly resolved but she states the pain is further down in th pelvic region. CT of abdomen/Pelvis revealed Smooth septal thickening in the lung bases concerning for fluid overload and Peripheral nodular densities in the right middle lung lobe measuring up to 0.9 cm -This could be driven by GI illness, patients multiple comorbidities including uncontrolled DM2 with complications, and patients medications -Reassuring that pt is hemodynamically stable, afebrile and without leukocytosis, though with lower quadrant abdominal tenderness on exam -Tylenol PRN pain (2) Diarrhea: Plan: -Patient does not report having watery diarrhea today -CTAP as above -GI panel positive for C. difficile, however because of her symptoms, she is probably a C. diff carrier. -Fluid repletion ongoing due to GI losses -Monitor BMP, electrolytes (3) Unable to care for self: Plan: -Pt has not been able to accomplish ADLs especially following her second BKA, now b/l BKA and living alone with generalized weakness and multiple comorbidities -PT/OT consulted and case management dissed SNF with patient. She was in agreement and is open to both to be able to accomplish ADLs. -Will discuss lifestyle modifications with patient regarding diet and physical activity (4) Diabetes mellitus type 2 with complications: Plan: -Poorly controlled DM2 w/ multiple complications including nephropathy and neuropathy along with PAD s/p b/l BKA. -Current A1C from 08/29 is at 7.9 -Continue gabapentin, Celexa for neuropathy -ERICK Starr in hospital (5) Coronary artery disease: Plan: -CAD s/p PCI w/ TARIK, currently 4 stents -No ACS concern at present given lack of chest pain and reassuring EKG on admission -Echocardiogram done and revealed no regional wall abnormalities with normal left ventricular systolic function and EF= 55-60%. There was borderline concentric left ventricular hypertrophy and mild mitral regurgitation. -Continue carvedilol, Plavix, aspirin, atorvastatin (6) Hyperlipidemia: Plan: -Continue atorvastatin (7) Hypertension: Plan: -BP stable at present -Continue carvedilol (8) Depression with anxiety: Plan: -Continue Celexa, Wellbutrin -Home Atarax PRN anxiety (used for itching per medication list) (9) Pulmonary vascular congestion: Plan: -Noted on CXR w/ mild cardiomegaly + interstitial thickening -As pt is currently w/o respiratory complaints and saturating well on RA w/ clear lung exam, will defer any diuresis beyond home Lasix (10) Hypokalemia: Plan: -Post repletion, this has been resolved. Potassium is currently at 4.0 today. -Monitor BMP (11) Hyponatremia: Plan: -Mild hyponatremia, currently at 133, likely due to dehydration -Fluid repletion ongoing -Monitor BMP (12) Anemia: Plan: -Hgb currently at 9.9, suspect that this is around her baseline given her recent Hgb have been around this number -No suspected bleeding at present -Monitor CBC Plan FENGI: DM2 Code status: Full DVT prophylaxis: Lovenox BID Isolation: None Unit: Medical/surgical Disposition planning: Likely SNF Admission and Anticipated Discharge Date Admission Date: August 28, 2023 Supervising Physician Co-Signing Physician Notes I personally examined the patient and verified all iverson points of history and exam, discussed case, and agree with decision making with Dr Pierce and Mercedes Duggan MS2 doing better updated son over the phone. Vitals noted, in general she is extremely fatigued but otherwise no distress. HEENT normocephalic atraumatic mucous membranes moist. breathing unlabored no accessory muscles good effort. leg pain - nothing appearing overtly concerning. pain control, improving abdominal symptoms - seem to be improving fatigue - PT/OT eval and treat will need SNF/placement otherwise as above Subjective Florinda Hill is a 48 year old female with PMH Type 2 Diabetes w/ nephropathy, peripheral vascular disease status post bilateral below knee amputation (R 2019, L 07/2023), HTN, HLD, CAD s/p PCI w/ TARIK x4, depression, anxiety, morbid obesity who presented to the ER and was later admitted for generalized weakness. This morning, the patient reports feeling better and is less weak than she was yesterday. She no longer has abdominal pain, but reports some generalized pelvic pain that she has not noticed before. She feels shortness of breath upon larger movements. After speaking about PT/OT and case management about senior care facilities, she feels open to both if they can help her go about her ADLs again and find ways to ambulate. She also wants to know about the plan of when to remove the izaiah from her left BKA surgery and is not sure when her follow-up with her surgeon is. Patient denies nausea, vomiting, chest pain, palpitations, dysuria, hematuria, urinary urgency, urinary retention, and any changes to her bowel movements. Review of Systems Review of Systems: General: Reports fatigue, generalized pain, and weakness. Denies fevers, chills, unintentional weightloss Respiratory: Reports shortness of breath upon movement. Denies cough and chest pain Cardiovascular: Denies lower extremity edema and palpitations MSK: Reports generalized weakness. Denies joint pains. GI: Reports mild abdominal pain, watery diarrhea, nausea, and vomiting. : Denies dysuria, retention, hematuria Skin: Patient did have a recent left sided BKA with some izaiah still present. Denies rashes, lesions, moles, and skin concerns Heme/Lymph: Denies bruising and bleeding Physical Exam Physical Exam: General: Patient is a tired appearing female, awake, alert, and oriented, in no acute distress Eye: PERRL (pupils equal and responsive to light), EOMI (extraocular motions intact) HEENT: normocephalic, atraumatic, no lymphadenopathy, trachea midline, no JVD Respiratory: lungs CTA, BS equal, symmetrical expansion, no rales, rhonchi or wheezing CV: normal rate and rhythm, no murmurs, rubs, or gallops, no edema, capillary refill < 2s GI: Normal bowel sounds, abdomen soft, non-tender, non-distended, no organomegaly : mild generalized pain in the pelvic region upon palpation. no CVA t enderness. Integumentary: No rashes, lesions, warm and dry Neurologic: alert and oriented Psychiatric: calm and cooperative, appropriate mood and affect Results & Data Results & Data Vital Signs (Past 12 Hours) Vital Signs Temp Pulse Resp BP Pulse Ox O2 Del Method 08/30/23 07:43 36.6 C 78 16 115/83 99 Room Air 08/30/23 07:00 Room Air Laboratory Results 08/30/23 08/29/23 08/29/23 06:22 21:01 16:47 WBC 8.24 RBC 3.37 L Hgb 9.9 L Hct 31.2 L MCV 92.6 MCH 29.4 MCHC 31.7 L RDW Std Deviation 51.6 H RDW Coeff of Travis 15.1 H Plt Count 261 MPV 12.3 Sodium 133 L Potassium 4.0 D Chloride 100 Carbon Dioxide 24 Anion Gap 9 BUN 15 Creatinine 1.18 Est Cr Clr Drug Dosing 79.0 Est GFR ( Amer) 63.2 Est GFR (Non-Af Amer) 54.5 BUN/Creatinine Ratio 12.7 Glucose 202 H POC Glucose 198 H 208 H Calcium 8.4 L 08/29/23 11:42 WBC RBC Hgb Hct MCV MCH MCHC RDW Std Deviation RDW Coeff of Travis Plt Count MPV Sodium Potassium Chloride Carbon Dioxide Anion Gap BUN Creatinine Est Cr Clr Drug Dosing Est GFR ( Amer) Est GFR (Non-Af Amer) BUN/Creatinine Ratio Glucose POC Glucose 216 H Calcium Diagnostic Findings Laboratory Results WBC 8.24 K/ul (4.8-10.8) 08/30/23 06:22 RBC 3.37 M/uL (4.20-5.40) L 08/30/23 06:22 Hgb 9.9 g/dl (12.0-16.0) L 08/30/23 06:22 Hct 31.2 % (37.0-47.0) L 08/30/23 06:22 MCV 92.6 fL (80.0-100.0) 08/30/23 06:22 MCH 29.4 pg (25.0-34.0) 08/30/23 06:22 MCHC 31.7 g/dL (32.0-36.0) L 08/30/23 06:22 RDW Std Deviation 51.6 fL (36.4-46.3) H 08/30/23 06:22 RDW Coeff of Travis 15.1 % (11.5-14.5) H 08/30/23 06:22 Plt Count 261 K/uL (130-400) 08/30/23 06:22 MPV 12.3 fL (9.4-12.4) 08/30/23 06:22 Immature Gran % (Auto) 0.7 % 08/28/23 18:50 Neut % (Auto) 60.8 % 08/28/23 18:50 Lymph % (Auto) 25.6 % 08/28/23 18:50 Knox % (Auto) 9.0 % 08/28/23 18:50 Eos % (Auto) 3.4 % 08/28/23 18:50 Baso % (Auto) 0.5 % 08/28/23 18:50 Neut # (Auto) 4.62 K/uL (1.40-6.50) 08/28/23 18:50 Lymph # (Auto) 1.94 K/uL (1.20-3.40) 08/28/23 18:50 Knox # (Auto) 0.68 K/uL (0.11-0.59) H 08/28/23 18:50 Eos # (Auto) 0.26 K/uL (0.00-0.50) 08/28/23 18:50 Baso # (Auto) 0.04 K/uL (0.00-0.20) 08/28/23 18:50 Immature Gran # (Auto) 0.05 K/uL (0.01-0.20) 08/28/23 18:50 Sodium 133 mmol/L (136-145) L 08/30/23 06:22 Potassium 4.0 mmol/L (3.5-5.1) D 08/30/23 06:22 Chloride 100 mmol/L (98-107) 08/30/23 06:22 Carbon Dioxide 24 mmol/L (21-32) 08/30/23 06:22 Anion Gap 9 (3-11) 08/30/23 06:22 BUN 15 mg/dl (6-23) 08/30/23 06:22 Creatinine 1.18 mg/dl (0.6-1.2) 08/30/23 06:22 Est Cr Clr Drug Dosing 79.0 ml/min 08/30/23 06:22 Est GFR ( Amer) 63.2 ml/min 08/30/23 06:22 Est GFR (Non-Af Amer) 54.5 ml/min 08/30/23 06:22 BUN/Creatinine Ratio 12.7 (10-20) 08/30/23 06:22 Glucose 202 mg/dl (70-99(Fasting)) H 08/30/23 06:22 POC Glucose 198 mg/dl (70-99) H 08/29/23 21:01 Estimat Average Glucose 180 mg/dl 08/29/23 05:31 Hemoglobin A1c 7.9 % (4.5-5.6) H 08/29/23 05:31 Calcium 8.4 mg/dl (8.6-10.3) L 08/30/23 06:22 Phosphorus 4.9 mg/dl (2.5-4.9) 08/29/23 05:31 Magnesium 1.6 mg/dl (1.7-2.4) L 08/29/23 05:31 Iron 34 mcg/dl (35-150) L 08/29/23 05:31 Ferritin 206.5 ng/ml (8-388) 08/29/23 05:31 Total Bilirubin 1.0 mg/dl (0.2-1.0) 08/28/23 18:50 AST 17 U/L (13-39) 08/28/23 18:50 ALT 13 U/L (7-52) 08/28/23 18:50 Alkaline Phosphatase 88 U/L (34-104) 08/28/23 18:50 Total Protein 7.1 gm/dl (6.0-8.3) 08/28/23 18:50 Albumin 3.4 gm/dl (3.4-5.0) 08/28/23 18:50 Globulin 3.7 gm/dl (2.5-4.0) 08/28/23 18:50 Albumin/Globulin Ratio 0.9 (0.9-2) 08/28/23 18:50 Urine Color Yellow 08/28/23 18:50 Urine Appearance Cloudy (Clear) A 08/28/23 18:50 Urine pH 5.0 (4.5-7.5) 08/28/23 18:50 Ur Specific [place] 1.016 (1.000-1.030) 08/28/23 18:50 Urine Protein 2+ (Negative) H 08/28/23 18:50 Urine Glucose (UA) Negative (Negative) 08/28/23 18:50 Urine Ketones Negative (Negative) 08/28/23 18:50 Urine Blood Negative (Negative) 08/28/23 18:50 Urine Nitrite Negative (Negative) 08/28/23 18:50 Urine Bilirubin Negative (Negative) 08/28/23 18:50 Urine Urobilinogen Negative (Negative) 08/28/23 18:50 Ur Leukocyte Esterase 2+ (Negative) H 08/28/23 18:50 Urine WBC (Auto) >30 /hpf (0-5) H 08/28/23 18:50 Urine RBC (Auto) 0-4 /hpf (0-4) 08/28/23 18:50 U Hyaline Cast (Auto) 5-10 /lpf (0-5) H 08/28/23 18:50 U Epithel Cells (Auto) >30 /lpf (0-5) H 12 18:50 Urine Bacteria (Auto) Negative (Negative) 08/28/23 18:50 Ur Renal Epithelial Cell Not Reportable 08/28/23 18:50 Urine Yeast Budding (None Prsent) A 08/28/23 18:50 Stl C. cayetanensis PCR Not Detected (NotDetected) 08/28/23 18:50 Stool Rotavirus A PCR Not Detected (NotDetected) 08/28/23 18:50 Stl Adenov F 40/41 PCR Not Detected (NotDetected) 08/28/23 18:50 Stool Astrovirus (PCR) Not Detected (NotDetected) 08/28/23 18:50 Stool Campylobacter PCR Not Detected (NotDetected) 08/28/23 18:50 Stl C. diff Tox B Gene Positive Cdiff Gene (Neg) H 08/28/23 18:50 Stl C.difficile Tox A&B Negative Cdiff Toxin (Negative) 08/28/23 18:50 Stool Cryptosporidium PCR Not Detected (NotDetected) 08/28/23 18:50 Stl E.coli Shiga Tox PCR Not Detected (NotDetected) 08/28/23 18:50 Stl Enterotoxigenic E PCR Not Detected (NotDetected) 08/28/23 18:50 Stool EPEC (PCR) Not Detected (NotDetected) 08/28/23 18:50 Stool EAEC (PCR) Not Detected (NotDetected) 08/28/23 18:50 Stl E. histolytica PCR Not Detected (NotDetected) 08/28/23 18:50 Stool Giardia Lamblia PCR Not Detected (NotDetected) 08/28/23 18:50 Stool Salmonella PCR Not Detected (NotDetected) 08/28/23 18:50 Stool Sapovirus (PCR) Not Detected (NotDetected) 08/28/23 18:50 Stl P. shigelloides PCR Not Detected (NotDetected) 08/28/23 18:50 Stl Shigella/EIEC PCR Not Detected (NotDetected) 08/28/23 18:50 St Y.enterocolitica PCR Not Detected (NotDetected) 08/28/23 18:50 Stool Vibrio (PCR) Not Detected (NotDetected) 08/28/23 18:50 Stl Vibrio cholerae PCR Not Detected (NotDetected) 08/28/23 18:50 Stl Norovirus GI/GII PCR Not Detected (NotDetected) 08/28/23 18:50 Adenovirus (PCR) Not Detected (NotDetected) 08/28/23 Unknown B. pertussis DNA (PCR) Not Detected (NotDetected) 08/28/23 Unknown B.parapertussis DNA PCR Not Detected (NotDetected) 08/28/23 Unknown C. pneumoniae DNA (PCR) Not Detected (NotDetected) 08/28/23 Unknown Coronavirus OC43 (PCR) Not Detected (NotDetected) 08/28/23 Unknown Coronavirus HKU1 (PCR) Not Detected (NotDetected) 08/28/23 Unknown Coronavirus 229E (PCR) Not Detected (NotDetected) 08/28/23 Unknown SARS-CoV-2 (PCR) Not Detected (NotDetected) 08/28/23 Unknown Coronavirus NL63 (PCR) Not Detected (NotDetected) 08/28/23 Unknown Human Metapneumovir PCR Not Detected (NotDetected) 08/28/23 Unknown Influenza Type A (PCR) Not Detected (NotDetected) 08/28/23 Unknown Influenza Type B (PCR) Not Detected (NotDetected) 08/28/23 Unknown M. pneumoniae (PCR) Not Detected (NotDetected) 08/28/23 Unknown Parainfluenza 1 (PCR) Not Detected (NotDetected) 08/28/23 Unknown Parainfluenza 2 (PCR) Not Detected (NotDetected) 08/28/23 Unknown Parainfluenza 3 (PCR) Not Detected (NotDetected) 08/28/23 Unknown Parainfluenza 4 (PCR) Not Detected (NotDetected) 08/28/23 Unknown RSV (PCR) Not Detected (NotDetected) 08/28/23 Unknown Entero/Rhino (PCR) Not Detected (NotDetected) 08/28/23 Unknown Impressions Chest X-Ray 08/28/23 18:21 XR chest 1V not portable HISTORY: Illness COMPARISON: None. FINDINGS: There are low lung volumes. No pneumothorax. No pleural effusions. The heart is mildly enlarged. There is diffuse interstitial thickening. This could be technical from the patient's body habitus. There is mild elevation of the right hemidiaphragm. No focal lung consolidations to suggest a pneumonia. IMPRESSION: 1. Diffuse interstitial thickening which could be technical or represent mild congestive change. 2. Mild cardiomegaly. ACT 112: Negative or not required by law. Electronically signed by: Lj Anaya M.D. 08/28/2023 7:03 PM Abdomen/Pelvis CT 08/28/23 23:38 Exam(s): CT ABDOMEN + PELVIS With Contrast IV Amt: 81 ML OPTIRAY 320 EXAM: CT Abdomen and Pelvis With Intravenous Contrast CLINICAL HISTORY: Reason for exam: LLQ pain, evaluate diverticulitis. TECHNIQUE: Axial computed tomography images of the abdomen and pelvis with intravenous contrast. CTDI is 34.95 mGy and DLP is 1922.42 mGy-cm. Automated exposure control was utilized for the study. A dose lowering technique was utilized adhering to the principles of ALARA. CONTRAST: Patient received 81 ML OPTIRAY 320 of IV contrast COMPARISON: No relevant prior studies available. FINDINGS: Lung bases: Smooth septal thickening in the lung bases concerning for fluid overload. Peripheral nodular densities in the right middle lobe measuring up to 0.9 cm. No consolidation. ABDOMEN: Liver: Unremarkable. No mass. Gallbladder and bile ducts: Unremarkable. No calcified stones. No ductal dilation. Pancreas: Unremarkable. No mass. No ductal dilation. Spleen: Unremarkable. No splenomegaly. Adrenals: Unremarkable. No mass. Kidneys and ureters: Unremarkable. No solid mass. No hydronephrosis. Stomach and bowel: Unremarkable. No obstruction. No mucosal thickening. PELVIS: Appendix: No findings to suggest acute appendicitis. Bladder: Unremarkable. No mass. Reproductive: Unremarkable as visualized. ABDOMEN and PELVIS: Intraperitoneal space: Unremarkable. No free air. No significant fluid collection. Bones/joints: No acute fracture. No dislocation. Soft tissues: Unremarkable. Vasculature: Unremarkable. No abdominal aortic aneurysm. Lymph nodes: Unremarkable. No enlarged lymph nodes. IMPRESSION: 1. No acute abdominal or pelvic process. 2. Smooth septal thickening in the lung bases concerning for fluid overload. 3. Peripheral nodular densities in the right middle lobe measuring up to 0.9 cm. Electronically signed by: Anselmo Fagan M.D. 08/29/23 02:39 AM
--- NOTE | 2023-08-30 19:14 | Billing Data ---
Date of Service August 30, 2023 Coding Level of Care Code 48322 SUB INP/OBS CARE
[2023-08-31 07:03] LABS: Hematocrit (blood only) 28.8 % (37.0-47.0); Hemoglobin 9.4 g/dl (12.0-16.0); Mean Corpuscular Hemoglobin 29.5 pg (25.0-34.0); Mean Corpuscular Hgb Conc 32.6 g/dL (32.0-36.0); Mean Corpuscular Volume 90.3 fL (80.0-100.0); Mean Platelet Volume 12.4 fL (9.4-12.4); Platelet Count 233 K/uL (130-400); RDW Standard Deviation 49.8 fL (36.4-46.3); Red Blood Count 3.19 M/uL (4.20-5.40)
[2023-08-31 07:29] LABS: BUN Creatinine Ratio 13.2 (10-20); Calcium 8.6 mg/dl (8.6-10.3); Creatinine Clr Calc Pharmacy 61.7 ml/min; Est GFR (African American) 46.9 ml/min; Est GFR (Non-African American) 40.4 ml/min; Potassium 4.2 mmol/L (3.5-5.1)
[2023-08-31] MEDS: LACTATED RINGER'S 1,000 ML IV SCH (08:57)
--- NOTE | 2023-08-31 10:34 | Hospitalist Progress Note ---
Date of Service August 31, 2023 Assessment & Plan (1) Abdominal pain: Plan: Pt is a 48 yo female with PMH of long-standing uncontrolled DM s/p multiple SC w/ stent and bilateral BKA (most recent Jul 2023) and depression presenting to the hospital d/t N/V/D and weakness. HERO - appears pre-renal in origin - hold home lasix; IVF at 125 mL/hr - monitor BMP Acute hypoxia/SOB - O2 sat down to 80 and requiring 2 L intermittently - unsure of etiology; will order troponin/EKG to r/o cardiac etiology, CTA to r/o PE - recheck BMP prior to CTA d/t HERO Viral gastroenteritis - CTAP neg for acute process - pt is hemodynamically stable, afebrile, and without leukocytosis - hx of C. diff; gene positive, toxin neg- no acute infection - continue supportive care with fluids, zofran PRN for nausea - expect self resolution Chronic deconditioning - pt has not been able to accomplish ADLs especially following her second BKA in Jul 2023; she lives alone with generalized weakness and multiple comorbidities - PT/OT consulted; case management following for SNF placement DM - poorly controlled DM2 w/ multiple complications including nephropathy and neuropathy along with PAD s/p bilateral BKA - current A1C 7.9% - continue gabapentin and celexa for neuropathy - continue lantus and SSI while hospitalized - recommend close f/u with endocrine as outpatient CAD - CAD s/p 4 stents - no ACS concern at present given lack of chest pain and reassuring EKG on ad mission - echocardiogram done and revealed no regional wall abnormalities with normal left ventricular systolic function and EF 55-60% - continue carvedilol, Plavix, aspirin, and atorvastatin HLD - continue atorvastatin HTN - continue carvedilol Electrolyte derangements - hypokalemia, hyponatremia - replete as necessary Depression with anxiety - continue celexa and wellbutrin - continue home hydroxyzine PRN Chronic anemia - Hgb appears stable; baseline ~9.0 Diet: DM2 Code status: Full DVT prophylaxis: Lovenox BID Dispo: will need SNF/acute rehab upon discharge (2) Diarrhea: (3) Unable to care for self: (4) Diabetes mellitus type 2 with complications: (5) Coronary artery disease: (6) Hyperlipidemia: (7) Hypertension: (8) Depression with anxiety: (9) Pulmonary vascular congestion: (10) Hypokalemia: (11) Hyponatremia: (12) Anemia: Admission and Anticipated Discharge Date Admission Date: August 28, 2023 Supervising Physician Co-Signing Physician Notes I personally examined the patient and verified all iverson points of history and exam, discussed case, and agree with decision making with Dr Pierce some chest pressure and shortness of breath off and on. notes prior pulmonary edema, prior pneumonia, prior PE - hard to tell what this feels the most like. Vitals noted, in general she is extremely fatigued maybe mildly sob although hard to gauge dyspnea vs fatigue. HEENT normocephalic atraumatic mucous membranes moist. breathing off and on mildly labored maybe faint rale base L otherwise quiet but clear no other r/r/w good effort. recheck ~90mins after initial eval similar but feels more tired but slightly less dyspnic dyspnea - ?ddx PE vs pneumonia vs pulmonary edema vs other. EKG nonacute and trop only 50 --> will trend but in light of those findings ACS seems unlikely. CT chest ordered - likely will give yield. if not then ABG. ongoing supportive care. leg pain - nothing appearing overtly concerning. pain control abdominal symptoms - no complaints of this today fatigue - PT/OT eval and treat will need SNF/placement otherwise as above Subjective Pt endorses she had a bad night due to pain. She states the oral pain medication (oxy) didn't help much. She feels very fatigued. She denies chest pain, SOB, or abdominal pain. Review of Systems Review of Systems: As per HPI Physical Exam Physical Exam: Constitutional: well appearing, no acute distress HEENT: normocephalic, no conjunctival injection CV: RRR, no murmur, no LE edema Respiratory: CTA bilaterally. No rhonchi, wheezes, or crackles. No increased work of breathing MSK: bilateral BKA w/ left sided wound from recent surgery healing well. Florentin still in place. No signs of infection Skin: warm, dry, no rashes Neuro: alert, oriented, no FND noted Psych: mood and affect congruent Results & Data Results & Data Vital Signs (Past 12 Hours) Vital Signs Temp Pulse Resp BP Pulse Ox O2 Del Method 08/31/23 07:39 36.8 C 83 18 126/75 91 Room Air Resident Activity Tracking Resident Involvement: Resident Care Provided Care Provided: Adult Hospital Medicine
[2023-08-31] MEDS: HYDROmorphone INJ 0.5 MG/0.5 ML SYR IV PRN (10:59)
[2023-08-31] MEDS ORDERED: ALBUT/IPRATROP 3MG/0.5MG NEB 3 ML VIAL NEB PRN (11:48)
[2023-08-31 16:52] LABS: BUN Creatinine Ratio 15.7 (10-20); Calcium 8.5 mg/dl (8.6-10.3); Creatinine Clr Calc Pharmacy 69.6 ml/min; Est GFR (African American) 54.2 ml/min; Est GFR (Non-African American) 46.7 ml/min; Potassium 4.3 mmol/L (3.5-5.1)
[2023-08-31] MEDS: SODIUM CHLORIDE 0.9% 500 ML IV SCH (17:01)
[2023-08-31 17:09] LABS: Troponin I High Sensitivity 51.5 pg/ml (0-14)
--- NOTE | 2023-08-31 17:57 | Billing Data ---
Date of Service August 31, 2023 Coding Level of Care Code 72642 SUB INP/OBS CARE
[2023-08-31] MEDS: OPTIRAY 320 125ml IV ONE (22:05)
--- NOTE | 2023-09-01 00:04 | CT Scan Report ---
Exam(s): CTA CHEST IV Amt: 119ml opti 320 EXAM: CT Angiography Chest With Intravenous Contrast CLINICAL HISTORY: Reason for exam: PE vs edema vs pneumonia; dyspnea. TECHNIQUE: Axial computed tomographic angiography images of the chest with intravenous contrast. CTDI is 28.14 mGy and DLP is 873.63 mGy-cm. Automated exposure control was utilized for the study. A dose lowering technique was utilized adhering to the principles of ALARA. MIP reconstructed images were created and reviewed. COMPARISON: None. FINDINGS: Pulmonary arteries: Unremarkable. No pulmonary embolism. Aorta: No acute findings. No thoracic aortic aneurysm. Lungs: Numerous bilateral pulmonary nodules, enlargement #1 the right compared to the left and averaging approximately 9.3 mm in maximum dimension. Additional areas of consolidation with irregular patchy and coarse opacities, some with round shape scattered within the bilateral lung [place] and the large number and confluent on the right compared to the left which may indicate diffuse pneumonia. Thickening of interstitial septa more severe as of the lung bases and lung apices, right more than left with reticular nodular pattern does not exclude carcinomatosis versus pulmonary edema. Mild fullness of the central vascularity which may indicate vascular congestion. Pleural space: Mild to moderate bilateral pleural effusions, right larger than left. No pneumothorax. Heart: Mild cardiomegaly with coronary artery calcifications. No significant pericardial effusion. No evidence of RV dysfunction. Bones/joints: No acute fracture. No dislocation. Soft tissues: Unremarkable. Lymph nodes: Unremarkable. No enlarged lymph nodes. Other findings: Multilevel degenerative disease of the spine. IMPRESSION: 1. No pulmonary embolus or aortic dissection. 2. Extensive bilateral reticulonodular pattern, with thickening of interstitial septa, multiple pulmonary nodules and patchy coarse and round opacities, confluent and more significant on the right compared to the left noted. Differential diagnosis is wide and includes diffuse multifocal pneumonitis with metastatic disease, carcinomatosis, or superimposed congestive heart failure/pulmonary edema not excluded. 3. Bilateral pleural effusions, right larger than left. Electronically signed by: Annalisa Bui MD 09/01/23 00:03 AM
[2023-09-01] MEDS ORDERED: HEPARIN SODIUM/DEXTROSE 25,000 UNITS/500 ML BAG IV SCH (00:30)
[2023-09-01 00:37] LABS: Basophils # (auto) 0.03 K/uL (0.00-0.20); Basophils % (auto) 0.3 %; Eosinophils # (auto) 0.18 K/uL (0.00-0.50); Eosinophils % (auto) 2.1 %; Hemoglobin 9.6 g/dl (12.0-16.0); Immature Granulocytes # (auto) 0.03 K/uL (0.01-0.20); Immature Granulocytes % (auto) 0.3 %; Lymphocytes # (auto) 2.09 K/uL (1.20-3.40); Lymphocytes % (auto) 24.2 %; Mean Corpuscular Hemoglobin 29.7 pg (25.0-34.0); Mean Corpuscular Volume 92.9 fL (80.0-100.0); Mean Platelet Volume 12.2 fL (9.4-12.4); Monocytes % (auto) 8.1 %; Neutrophils # (auto) 5.62 K/uL (1.40-6.50); Platelet Count 234 K/uL (130-400); RDW Coefficient of Variation 15.1 % (11.5-14.5); RDW Standard Deviation 50.4 fL (36.4-46.3); Red Blood Count 3.23 M/uL (4.20-5.40); White Blood Count 8.65 K/ul (4.8-10.8)
[2023-09-01] MEDS: HEPARIN SOD (PORCINE) 1000 UNIT/ML IV ONE (00:37)
[2023-09-01] MEDS: Heparin IV Adult Wt-Based Standard w/ INITIAL Bolus Protocol IV STA (00:38)
[2023-09-01 01:07] LABS: Partial Thromboplastin Ratio 1.1; Partial Thromboplastin Time 30 Seconds (21-31); Prothrombin Time 11.4 Seconds (9.0-12.0)
[2023-09-01] MEDS: ONDANSETRON INJ 2 MG/ML 2 ML VIAL IV PRN (06:51)
--- NOTE | 2023-09-01 07:48 | Electrocardiogram Report ---
Test Reason : Blood Pressure : / mmHG Vent. Rate : 082 BPM Atrial Rate : 082 BPM P-R Int : 184 ms QRS Dur : 104 ms QT Int : 404 ms P-R-T Axes : 053 063 060 degrees QTc Int : 472 ms Normal sinus rhythm Abnormal ECG When compared with ECG of 28-AUG-2023 19:06, Premature ventricular complexes are no longer Present Premature supraventricular complexes are no longer Present Nonspecific T wave abnormality, worse in Inferior leads Confirmed by Caio Magana ([id number] on 09/01/2023 7:47:51 AM Referred By: REFERRED SELF Confirmed By:David Magana
[2023-09-01] MEDS: ALBUT/IPRATROP 3MG/0.5MG NEB 3 ML VIAL NEB ONE (07:53)
[2023-09-01 08:02] LABS: BUN Creatinine Ratio 16.2 (10-20); Calcium 8.8 mg/dl (8.6-10.3); Creatinine Clr Calc Pharmacy 71.7 ml/min; Est GFR (African American) 56.2 ml/min; Est GFR (Non-African American) 48.5 ml/min; Potassium 4.3 mmol/L (3.5-5.1)
[2023-09-01] MEDS: CEFEPIME 2,000 MG in SYRINGE 0 ML IV STA (08:36)
[2023-09-01] MEDS: ENOXAPARIN INJ 40 MG/0.4 ML SYR SQ SCH (08:37)
--- NOTE | 2023-09-01 08:54 | Hospitalist Progress Note ---
Date of Service September 01, 2023 Assessment & Plan (1) Abdominal pain: Plan: Pt is a 48 yo female with PMH of long-standing uncontrolled DM s/p multiple MD w/ stent and bilateral BKA (most recent Jul 2023) and depression presenting to the hospital d/t N/V/D and weakness. Acute hypoxia/SOB - unlikely to be cardiac in origin: troponin elevated but stable and EKG WNL - CTA neg for PE, but did show multifocal disease w/ bilateral pleural effusions - unsure if pleural effusions as the main culprit as pt was diuresed to the point of HERO prior to symptom onset; trial 40mg IV lasix to see if this improves her breathing - favor infectious etiology although no leukocytosis, afebrile, procal neg; blood cx obtained, begin cefepime HERO - suspect pre-renal vs. nonperfusion - pt's fluid status is difficult to determine but at this time pt appears more wet than dry - lasix as above; will recheck BMP tomorrow AM and possibly diurese more Viral gastroenteritis - CTAP neg for acute process - pt is hemodynamically stable, afebrile, and without leukocytosis - hx of C. diff; gene positive, toxin neg- no acute infection - continue supportive care with fluids, zofran PRN for nausea - expect self resolution Chronic deconditioning - pt has not been able to accomplish ADLs especially following her second BKA in Jul 2023; she lives alone with generalized weakness and multiple comorbidities - PT/OT consulted; case management following for SNF placement DM - poorly controlled DM2 w/ multiple complications including nephropathy and neuropathy along with PAD s/p bilateral BKA - current A1C 7.9% - continue gabapentin and celexa for neuropathy - continue lantus and SSI while hospitalized - recommend close f/u with endocrine as outpatient CAD - s/p 4 stents - cardiac work up as above - echocardiogram done and revealed no regional wall abnormalities with normal left ventricular systolic function and EF 55-60% - continue carvedilol, Plavix, aspirin, and atorvastatin HLD - continue atorvastatin HTN - continue carvedilol Electrolyte derangements - hypokalemia, hyponatremia - replete as necessary Depression with anxiety - continue celexa and wellbutrin - continue home hydroxyzine PRN Chronic anemia - Hgb appears stable; baseline ~9.0 Diet: DM2 Code status: Full DVT prophylaxis: Lovenox BID Dispo: will need SNF/acute rehab upon discharge (2) Diarrhea: (3) Unable to care for self: (4) Diabetes mellitus type 2 with complications: (5) Coronary artery disease: (6) Hyperlipidemia: (7) Hypertension: (8) Depression with anxiety: (9) Pulmonary vascular congestion: (10) Hypokalemia: (11) Hyponatremia: (12) Anemia: Admission and Anticipated Discharge Date Admission Date: August 28, 2023 Supervising Physician Co-Signing Physician Notes I personally examined the patient and verified all iverson points of history and exam, discussed case, and agree with decision making with Dr Pierce breathing worse this AM - later in f/u after lasix - better/improving. Vitals noted, earlier in the day mod dyspnea diffuse rales, later far less dyspnea faint base rales. diminished throughout. dyspnea - CT (both per radiology and my review) actually fairly hard to interpret but seems c/w both infection and pulmonary edema. on abx now, but rapid improvement strongly suggests pulmonary edema was a big component, which would almost have to be acute diastolic CHF but overall her heart looks reassuring on echo - so will need to continue to follow closely. continue abx. given ddx of malignancy per radiology - will want to follow through and repeat CT once clinically better. leg pain - nothing appearing overtly concerning. pain control abdominal symptoms - no complaints of this today fatigue - PT/OT eval and treat will need SNF/placement once more medically stable otherwise as above Subjective Overnight resident paged at end of shift that pt requiring 10L oxymask. Pt seen at bedside. Pt complaining of right-sided chest pain that radiates into her stomach, feeling SOB, and wheezing. She feels hot and feverish. Review of Systems Review of Systems: As per HPI Physical Exam Physical Exam: Constitutional: ill appearing, diaphoretic, in mild distress HEENT: normocephalic, no conjunctival injection CV: RRR, no murmur, no LE edema Respiratory: Rhonchi heard throughout with crackles in RLL. Occasional wheezing heard throughout upper lobes. Minimally increased work of breathing MSK: bilateral BKA noted Skin: warm, dry, no rashes Neuro: alert, oriented, no FND noted Psych: mood and affect congruent Results & Data Results & Data Vital Signs (Past 12 Hours) Vital Signs Temp Pulse Pulse Resp BP Pulse Ox O2 Del Method 09/01/23 07:54 85 18 95 Oxymask 09/01/23 06:23 36.9 C 87 18 116/79 92 Nasal Cannula 09/01/23 06:15 89 18 132/93 94 Oxymask 09/01/23 03:37 36.8 C 82 18 115/78 95 Nasal Cannula 08/31/23 23:47 82 08/31/23 23:29 93 Nasal Cannula 08/31/23 23:26 36.5 C 80 16 96/58 L 90 Room Air 08/31/23 22:50 Nasal Cannula O2 Flow Rate 09/01/23 07:54 10 09/01/23 06:23 3 09/01/23 06:15 10 09/01/23 03:37 2 08/31/23 23:47 08/31/23 23:29 2 08/31/23 23:26 08/31/23 22:50 2 Resident Activity Tracking Resident Involvement: Resident Care Provided Care Provided: Adult Hospital Medicine
[2023-09-01] MEDS: ALBUT/IPRATROP 3MG/0.5MG NEB 3 ML VIAL NEB SCH (11:23)
--- NOTE | 2023-09-01 12:46 | Electrocardiogram Report ---
Test Reason : Blood Pressure : / mmHG Vent. Rate : 094 BPM Atrial Rate : 094 BPM P-R Int : 180 ms QRS Dur : 102 ms QT Int : 380 ms P-R-T Axes : 059 082 113 degrees QTc Int : 475 ms Poor data quality, interpretation may be adversely affected Sinus rhythm with occasional Premature ventricular complexes Nonspecific ST and T wave abnormality Abnormal ECG When compared with ECG of 31-AUG-2023 16:51, Premature ventricular complexes are now Present Criteria for Septal infarct are no longer Present Confirmed by Caio Magana ([id number]) on 09/01/2023 12:46:33 PM Referred By: REFERRED SELF Confirmed By:David Magana
[2023-09-01] MEDS: FUROSEMIDE 40 MG/4 ML VIAL IV ONE (13:34)
--- NOTE | 2023-09-01 18:44 | Billing Data ---
Date of Service September 01, 2023 Coding Level of Care Code 77071 SUB INP/OBS CARE MIN
[2023-09-01] MEDS: LANTUS PER UNIT CHARGE SQ SCH (21:20)
[2023-09-01] MEDS: CEFEPIME 2,000 MG in SYRINGE 0 ML IV SCH (21:20)
[2023-09-02 07:15] LABS: BUN Creatinine Ratio 16.8 (10-20); Calcium 8.7 mg/dl (8.6-10.3); Est GFR (African American) 47.6 ml/min; Est GFR (Non-African American) 41.1 ml/min; Potassium 4.3 mmol/L (3.5-5.1)
--- NOTE | 2023-09-02 07:33 | Hospitalist Progress Note ---
Date of Service September 02, 2023 Assessment & Plan (1) Abdominal pain: Plan: Pt is a 48 yo female with PMH of long-standing uncontrolled DM s/p multiple [place] w/ stent and bilateral BKA (most recent Jul 2023) and depression presenting to the hospital d/t N/V/D and weakness. Acute hypoxia/SOB - unlikely to be cardiac in origin: troponin elevated but stable and EKG WNL - CTA neg for PE, but did show multifocal disease w/ bilateral pleural effusions - pt's breathing improved with IV lasix; now down to 2L O2- d/c ABX as infectious source now appears unlikely - will resume home lasix tomorrow AM and follow Cr HERO - pt's fluid status appears more wet than dry in spite of her (what appears to be) a pre-renal HERO - lasix as above and follow Cr Viral gastroenteritis - CTAP neg for acute process - pt is hemodynamically stable, afebrile, and without leukocytosis - hx of C. diff; gene positive, toxin neg- no acute infection - continue supportive care with fluids, zofran PRN for nausea - expect self resolution Chronic deconditioning - pt has not been able to accomplish ADLs especially following her second BKA in Jul 2023; she lives alone with generalized weakness and multiple comorbidities - PT/OT consulted; case management following for SNF placement DM - poorly controlled DM2 w/ multiple complications including nephropathy and neuropathy along with PAD s/p bilateral BKA - current A1C 7.9% - continue gabapentin and celexa for neuropathy - continue lantus and SSI while hospitalized - recommend close f/u with endocrine as outpatient CAD - s/p 4 stents - cardiac work up as above - echocardiogram done and revealed no regional wall abnormalities with normal left ventricular systolic function and EF 55-60% - continue carvedilol, Plavix, aspirin, and atorvastatin HLD - continue atorvastatin HTN - continue carvedilol Electrolyte derangements - hypokalemia, hyponatremia - replete as necessary Depression with anxiety - continue celexa and wellbutrin - continue home hydroxyzine PRN Chronic anemia - Hgb appears stable; baseline ~9.0 Diet: DM2 Code status: Full DVT prophylaxis: Lovenox BID Dispo: will need SNF/acute rehab upon discharge (2) Diarrhea: (3) Unable to care for self: (4) Diabetes mellitus type 2 with complications: (5) Coronary artery disease: (6) Hyperlipidemia: (7) Hypertension: (8) Depression with anxiety: (9) Pulmonary vascular congestion: (10) Hypokalemia: (11) Hyponatremia: (12) Anemia: Admission and Anticipated Discharge Date Admission Date: August 28, 2023 Supervising Physician Co-Signing Physician Notes Resident Physician Supervision Note: I independently interviewed and examined the patient and verified the iverson history and physical, reviewed labs and image studies and agree with resident fi ndings and care plan. Breathing improved since receiving lasix yesterday. able to lay flat in bed. Vitals noted, diminished air entry at base. rest of lung clear. RRR. Acute hypoxic resp failure due to HFpEF - Diuresed with neg 1L. Improved oxygenation. Creatinine rise noted. Considering extensive cardiac history - concern of repeat decompensation if not able to diurese further. Discussed with cardiology -will diurese further - give a dose of IV lasix this evening. consult placed. follow renal function. -will d/c abx. s/p BKA - will needs izaiah removed if stays hospitalized on 09/04. abdominal pain/diarrhea - resolved. fatigue - PT/OT eval and treat will need SNF/placement once more medically stable Subjective Pt feeling better compared to yesterday. Today complaining of right shoulder soreness and leg soreness (not different from her usual). Review of Systems 2 Review of Systems: As per HPI Physical Exam Physical Exam: Constitutional: well appearing, no acute distress HEENT: normocephalic, no conjunctival injection CV: RRR, no murmur Respiratory: Lungs diminished throughout. No rhonchi, occasional wheezes, and no crackles heard. No increased work of breathing MSK: bilateral BKA Skin: warm, dry, no rashes Neuro: alert, oriented, no FND noted Psych: mood and affect congruent Results & Data Results & Data Vital Signs (Past 12 Hours) Vital Signs Temp Pulse Pulse Resp BP BP Pulse Ox 09/02/23 07:22 78 09/02/23 03:04 36.9 C 81 20 120/88 100 09/02/23 00:46 82 09/01/23 23:17 09/01/23 23:06 36.6 C 85 18 114/79 93 09/01/23 20:42 36.7 C 89 18 110/78 97 09/01/23 19:55 84 20 95 O2 Del Method O2 Flow Rate 09/02/23 07:22 09/02/23 03:04 Oxymask 4 09/02/23 00:46 09/01/23 23:17 Oxymask 4 09/01/23 23:06 Room Air 09/01/23 20:42 Oxymask 4 09/01/23 19:55 Oxymask 4 Resident Activity Tracking Resident Involvement: Resident Care Provided Care Provided: Adult Hospital Medicine
[2023-09-02 07:59] LABS: Hematocrit (blood only) 29.8 % (37.0-47.0); Hemoglobin 9.7 g/dl (12.0-16.0); Mean Corpuscular Hemoglobin 29.7 pg (25.0-34.0); Mean Corpuscular Hgb Conc 32.6 g/dL (32.0-36.0); Mean Corpuscular Volume 91.1 fL (80.0-100.0); Mean Platelet Volume 12.7 fL (9.4-12.4); Platelet Count 215 K/uL (130-400); RDW Coefficient of Variation 14.9 % (11.5-14.5); RDW Standard Deviation 49.9 fL (36.4-46.3); Red Blood Count 3.27 M/uL (4.20-5.40); White Blood Count 7.85 K/ul (4.8-10.8)
[2023-09-02] MEDS: FUROSEMIDE 40 MG/4 ML VIAL IV ONE (17:03)
[2023-09-02] MEDS: GLUCOSE 40% GEL 15 GM TUBE PO PRN (18:18)
[2023-09-02] MEDS: DEXTROSE 50% 50 ML SYRINGE IV PRN (18:58)
[2023-09-02] MEDS: NALOXONE HCL 0.4 MG/1 ML VIAL/CARP IV STA (19:15)
[2023-09-02 19:35] LABS: Hemoglobin 10.2 g/dl (12.0-16.0); Mean Corpuscular Hemoglobin 29.5 pg (25.0-34.0); Mean Corpuscular Hgb Conc 32.9 g/dL (32.0-36.0); Mean Corpuscular Volume 89.6 fL (80.0-100.0); Mean Platelet Volume 11.8 fL (9.4-12.4); Platelet Count 214 K/uL (130-400); RDW Standard Deviation 48.7 fL (36.4-46.3); Red Blood Count 3.46 M/uL (4.20-5.40); White Blood Count 6.95 K/ul (4.8-10.8)
--- NOTE | 2023-09-02 19:36 | Communication Note ---
Date of Service: September 02, 2023 Radha ellis called due to pt becoming unresponsive. Prior to this, RN found pt diaphoretic with BSG of 76 at 5:21 PM, gave her multiple orange juices and subsequent recheck at 6:10 PM of 51. Repeat at 6:35 PM of 79. Repeat at 6:53 PM of 53. Ampule of D50 given. Pt then found unresponsive and code called around 7:06 PM. Repeat BSG at 7:11 PM of 168. Presented to bedside for evaluation. Pt still unresponsive. VSS, though pupils noted to be dilated. She did receive Dilaudid 0.5 mg IV at 9 AM today, also regularly receives gabapentin 100 mg QID per home list. Narcan 0.4 mg IV given w/ no response in pt's mental status. Repeat D50 ampule given. Pt did respond to noxious stimuli later though was unintelligible. VSS throughout evaluation. STAT labs ordered- CBC, BMP, lactate, BCx, procalcitonin, Mg, Phos, troponin, ABG. EKG ordered. Exam per Dr. Galindo' attestation. Resident Activity Tracking Resident Involvement: Resident Care Provided Care Provided: [facility] Supervising Attestation Radha ellis was called to the patient's room a few minutes after 7:00 this evening. We immediately responded please refer to the resident's documentation above I reviewed that I agree with the documentation therein. Upon presentation to the room the patient was unresponsive to both verbal and tactile stimuli. Her pupils were partially dilated. Heart was regular rate and rhythm vital signs were all stable including pulse ox blood pressure and pulse - please refer to charting. Repeat blood glucose was 168. At approximately 7:20 an additional amp of D50 was administered at that time the patient began to become more arousable to noxious stimuli and eventually to verbal stimuli. Brief exam HEENT normocephalic atraumatic pupils are reactive to light. Heart regular rate and rhythm did not appreciate murmur or ectopy or rub. Lungs were clear but diminished. Abdomen obese soft positive bowel sounds. Extremities bilateral lower extremity amputations were noted. Neurologically she was initially unresponsive but gradually is becoming more responsive as discussed above. Prior to exiting the room the patient complained of being cold because she was in a damp gown due to her diaphoresis she would open her eyes upon verbal command. Labs and battery of testing ordered and pending as discussed in the resident's note.
[2023-09-02 19:50] LABS: iSTAT Arterial Blood Gas HCO3 24 meg/L (19-24); iSTAT Arterial Blood Gas pCO2 40 mmHg (35-46); iSTAT Arterial Blood Gas pH 7.38 (7.35-7.45); iSTAT Arterial Blood Gas pO2 59 mmHg (80-95); iSTAT Carbon Dioxide 25 mmol/L (24-31); iSTAT Hematocrit 30 % (37-47); iSTAT Hemoglobin 10.2 g/dl (12.0-16.0); iSTAT Potassium 3.4 mmol/L (3.3-5.0); iSTAT Sodium 133 mmol/L (135-144)
[2023-09-02 19:59] LABS: BUN Creatinine Ratio 18.4 (10-20); Calcium 8.7 mg/dl (8.6-10.3); Est GFR (African American) 53.2 ml/min; Est GFR (Non-African American) 45.9 ml/min; Magnesium 1.7 mg/dl (1.7-2.4); Phosphorus 4.2 mg/dl (2.5-4.9); Potassium 3.3 mmol/L (3.5-5.1)
--- NOTE | 2023-09-02 21:49 | CT Scan Report ---
CT SCAN OF THE BRAIN WITHOUT IV CONTRAST CLINICAL HISTORY: Change in mental status. Unresponsive. COMPARISON STUDY: No priors. TECHNIQUE: Unenhanced axial CT scan of the brain is performed from the vertex to the skull base. A d ose lowering technique was utilized adhering to the principles of ALARA. CT DOSE: 625.8 mGy.cm FINDINGS: Brain parenchyma: The brain parenchyma is normal in appearance. There is no hemorrhage, mass effect, or evidence of acute territorial ischemia by CT criteria. Romano-white matter differentiation is preser carter. No extra-axial fluid collection is seen. Ventricles, sulci, cisterns: Normal in configuration. Intracranial vasculature: The visualized intracranial vasculature at the skull base is normal in appe arance. Calvarium: Unremarkable. Sinuses and mastoids: There is mucosal thickening within the right ethmoid sinuses and right sphenoid sinus. The remaining paranasal sinuses are clear. There are moderate to large bilateral mastoid effu sions. Orbits: The bony orbits are grossly intact. IMPRESSION: 1. No acute intracranial abnormality. 2. Bilateral mastoid effusions. ACT 112: Negative or not required by law. Electronically signed by: Alan Davies M.D. 09/02/2023 9:47 PM
--- NOTE | 2023-09-02 22:07 | Communication Note ---
<Statement entered by Fran Galindo, PhD, DO - 09/02/23 22:50> I agree with the documentation above. I also reevaluated the patient in the room we will add a ammonia level. Clinically the patient obviously has obstructive sleep apnea it appears with loud snores respirations. However she awakens with verbal stimuli. She follows all my commands including grasping with both her left and right hand independently opening her eyes on command giving me a smile on command. She is somewhat drowsy and mildly encephalopathic. But her ABGs were reassuring earlier. Will place the patient on auto CPAP. Date of Service: September 02, 2023 Notified by RN around 9:45 PM of pt's snoring/belly breathing, frothing at mouth and minimal responsiveness. Arrived to bedside and pt was found to be snoring and unresponsive, though with verbal and noxious stimuli she, while still clearly altered, was more alert than at time of code purple earlier in evening. She was able to verbalize and state she felt better than before. Pt was responsive to verbal commands as well. VSS though nursing at bedside reported brief desaturations to 80s% O2 earlier. Pt currently saturating well on 3L oxymask. CV- RRR, normal S1, S2, no murmurs Resp- diminished lung sounds diffusely w/o any notable increased work of breathing Review of previous labs ordered after code purple did not reveal any insignificant abnormalities. ABG was reassuring. Modest troponin elevation to 46, we will continue to trend. EKG w/o ischemia concerns. K 3.3, being repleted with IV potassium at present. BSGs have remained elevated in 180s-mid 200s. Head CT negative. Questionable etiology of AMS, seizure considered but less likely given no discernible tonic/clonic movements but frothing at mouth can certainly be a symptom of such. Almost certainly a metabolic encephalopathy with very likely a component of untreated ISRAEL/OHS present. BIPAP Hs ordered. We will continue to monitor pt for now with q1h neuro checks. Made NPO for now due to AMS, will check ammonia and held hydroxyzine as another sedative medication. Resident Activity Tracking Resident Involvement: Resident Care Provided Care Provided: [facility]
[2023-09-02] MEDS: POTASSIUM CHLORIDE CRTAB 20 MEQ TABCR PO STA (22:12)
[2023-09-02] MEDS: POTASSIUM CHLORIDE / WTR 10 MEQ/100 ML PLCT IV SCH (22:21)
[2023-09-03 06:26] LABS: Mean Corpuscular Hemoglobin 29.7 pg (25.0-34.0); Mean Corpuscular Hgb Conc 33.3 g/dL (32.0-36.0); Mean Corpuscular Volume 89.1 fL (80.0-100.0); Mean Platelet Volume 12.4 fL (9.4-12.4); Platelet Count 209 K/uL (130-400); RDW Coefficient of Variation 15.1 % (11.5-14.5); RDW Standard Deviation 48.6 fL (36.4-46.3); Red Blood Count 3.03 M/uL (4.20-5.40); White Blood Count 6.56 K/ul (4.8-10.8)
[2023-09-03 06:45] LABS: BUN Creatinine Ratio 17.6 (10-20); Calcium 8.6 mg/dl (8.6-10.3); Creatinine Clr Calc Pharmacy 71.7 ml/min; Est GFR (African American) 55.7 ml/min; Potassium 4.4 mmol/L (3.5-5.1)
--- NOTE | 2023-09-03 07:17 | Hospitalist Progress Note ---
Date of Service September 03, 2023 Assessment & Plan (1) Abdominal pain: Plan: Pt is a 48 yo female with PMH of long-standing uncontrolled DM s/p multiple [place] w/ stent and bilateral BKA (most recent Jul 2023) and depression presenting to the hospital d/t N/V/D and weakness. AMS - pt with code purple 09/02 - lab work WNL; head CT neg - pt back to her baseline this AM with some grogginess; suspect d/t low BS in addition to hydroxyzine dose - continue to hold gabapentin and hydroxyzine today Acute hypoxia/SOB - unlikely to be cardiac in origin: troponin elevated but stable and EKG WNL - CTA neg for PE, but did show multifocal disease w/ bilateral pleural effusions - d/c ABX as infectious source now appears unlikely - s/p 40 mg IV lasix 09/01 and 09/02; pt no longer requiring oxygen and breathing more stable - will resume home lasix 40 mg PO daily with additional IV lasix 40 mg today - cardio consulted HERO - pt's fluid status appears more wet than dry in spite of her (what appears to be) a pre-renal HERO - lasix as above and follow Cr Viral gastroenteritis - CTAP neg for acute process - pt is hemodynamically stable, afebrile, and without leukocytosis - hx of C. diff; gene positive, toxin neg- no acute infection - continue supportive care with fluids PRN, zofran PRN for nausea - expect self resolution Chronic deconditioning - pt has not been able to accomplish ADLs especially following her second BKA in Jul 2023; she lives alone with generalized weakness and multiple comorbidities - PT/OT consulted; case management following for SNF placement DM - poorly controlled DM2 w/ multiple complications including nephropathy and neuropathy along with PAD s/p bilateral BKA - current A1C 7.9% - continue celexa for neuropathy; hold gabapentin due to AMS as above - continue lantus and SSI while hospitalized - recommend close f/u with endocrine as outpatient CAD - s/p 4 stents - cardiac work up as above - echocardiogram done and revealed no regional wall abnormalities with normal left ventricular systolic function and EF 55-60% - continue carvedilol, Plavix, aspirin, and atorvastatin HLD - continue atorvastatin HTN - continue carvedilol Electrolyte derangements - hypokalemia, hyponatremia - replete as necessary Depression with anxiety - continue celexa and wellbutrin - hold home hydroxyzine in the setting of AMS as above Chronic anemia - Hgb appears stable; baseline ~9.0 Diet: DM2 Code status: Full DVT prophylaxis: Lovenox BID Dispo: will need SNF/acute rehab upon discharge (2) Diarrhea: (3) Unable to care for self: (4) Diabetes mellitus type 2 with complications: (5) Coronary artery disease: (6) Hyperlipidemia: (7) Hypertension: (8) Depression with anxiety: (9) Pulmonary vascular congestion: (10) Hypokalemia: (11) Hyponatremia: (12) Anemia: Admission and Anticipated Discharge Date Admission Date: August 28, 2023 Supervising Physician Co-Signing Physician Notes Resident Physician Supervision Note: I independently interviewed and examined the patient and verified the iverson history and physical, reviewed labs and image studies and agree with resident findings and care plan. Code purple last evening - noted to be hypoglycemic. Had dose of hydroxyzine before the episode. Work up with head imaging and labs was negative. Was kept on bipap overnight. This morning breathing well, alert. Urinated a lot yesterday. Creatinine better this am. Ordered another dose of IV lasix this am - improved breathing. Repeated dose later in the day. Vitals noted, diminished air entry at base and crackles. rest of lung clear. RRR. Acute hypoxic resp failure due to HFpEF - neg 3L. Off O2. Cardiology agrees with aggressive diuresis. -Continue IV lasix 40mgs bid. follow renal function. CAD - BP on lower side - will hold carvedilol and resume once well diuresed at a lower dose. Metabolic encephalopathy - hypoglycemia and hydroxyzine. Mentation clear. -Hold hydroxyzine. -For Hypoglycemic episode - Glargine dose dropped from 25 bid to 10 bid. s/p BKA - contact made with surgeon. will needs izaiah removed if stays hospitalized on 09/06. abdominal pain/diarrhea - resolved. fatigue - PT/OT eval and treat will need SNF/placement once more medically stable Enoxaparin Subjective Pt with code purple overnight d/t AMS- work up largely unremarkable. Pt groggy this morning but conversational. She is able to show me a picture of her grandchildren. No focal weakness that is out of her ordinary. She describes her head as feeling "swimmy." She notes a squiggly line on the left side of her vision but she has seen this before. Review of Systems Review of Systems: As per HPI Physical Exam Physical Exam: Constitutional: well appearing, no acute distress HEENT: normocephalic, no conjunctival injection CV: regular rhythm, regular rate, no murmur Respiratory: Clear to auscultation bilaterally. No rhonchi, wheezes, or crackles. No increased work of breathing GI: soft, nondistended, nontender, positive bowel sounds MSK: no gross deformities noted; bilateral BKA noted Skin: warm, dry, no rashes Neuro: alert but groggy, no FND noted Results & Data Results & Data Vital Signs (Past 12 Hours) Vital Signs Temp Pulse Pulse Resp BP BP Pulse Ox 09/03/23 07:14 90 17 98 09/03/23 07:14 89 17 98 09/03/23 06:00 115/66 09/03/23 06:00 88 18 97 09/03/23 05:00 113/67 09/03/23 05:00 87 17 98 09/03/23 04:00 84 15 97 09/03/23 04:00 110/69 09/03/23 04:00 36.6 C 09/03/23 03:01 84 16 95 09/03/23 03:00 101/76 09/03/23 03:00 86 21 95 09/03/23 02:00 77 15 98 09/03/23 02:00 102/74 09/03/23 01:38 35.4 C L 09/03/23 01:01 117/76 09/03/23 01:01 77 15 97 09/03/23 00:00 97/66 L 09/03/23 00:00 76 16 99 09/02/23 23:22 35.0 C L 09/02/23 23:20 82 13 100 09/02/23 23:19 35.4 C L 09/02/23 23:19 35.0 C L 09/02/23 23:10 78 15 100 09/02/23 23:03 83 09/02/23 23:01 114/92 09/02/23 23:01 79 14 94 09/02/23 23:00 81 15 99 09/02/23 22:50 82 16 98 09/02/23 22:40 82 17 98 09/02/23 22:30 81 18 100 09/02/23 22:23 122/83 09/02/23 22:23 81 17 99 09/02/23 22:23 84 16 122/83 99 09/02/23 22:20 82 20 100 09/02/23 22:10 82 15 96 09/02/23 22:10 81 18 95 09/02/23 22:00 82 16 95 09/02/23 21:59 85 20 114/71 96 09/02/23 21:40 83 115/71 94 09/02/23 20:40 84 17 09/02/23 20:30 84 14 09/02/23 20:30 09/02/23 20:08 86 09/02/23 19:35 89 22 95 O2 Del Method O2 Flow Rate FiO2 09/03/23 07:14 CPAP 2 09/03/23 07:14 2 09/03/23 06:00 09/03/23 06:00 09/03/23 05:00 09/03/23 05:00 09/03/23 04:00 09/03/23 04:00 09/03/23 04:00 09/03/23 03:01 2 09/03/23 03:00 09/03/23 03:00 09/03/23 02:00 09/03/23 02:00 09/03/23 01:38 09/03/23 01:01 09/03/23 01:01 CPAP 09/03/23 00:00 09/03/23 00:00 09/02/23 23:22 09/02/23 23:20 09/02/23 23:19 09/02/23 23:19 09/02/23 23:10 09/02/23 23:03 09/02/23 23:01 09/02/23 23:01 09/02/23 23:00 09/02/23 22:50 09/02/23 22:40 09/02/23 22:30 09/02/23 22:23 09/02/23 22:23 09/02/23 22:23 CPAP 2 09/02/23 22:20 09/02/23 22:10 2 09/02/23 22:10 09/02/23 22:00 09/02/23 21:59 Oxymask 3 09/02/23 21:40 Oxymask 3 09/02/23 20:40 09/02/23 20:30 09/02/23 20:30 Oxymask 3 09/02/23 20:08 09/02/23 19:35 Oxymask 3 Resident Activity Tracking Resident Involvement: Resident Care Provided Care Provided: Adult Hospital Medicine
[2023-09-03] MEDS: FUROSEMIDE 40 MG TAB PO SCH (07:56)
[2023-09-03] MEDS: FUROSEMIDE 40 MG/4 ML VIAL IV ONE ×2 (10:25→16:38)
--- NOTE | 2023-09-03 11:13 | Cardiology Consultation ---
Date of Consultation September 03, 2023 Assessment & Plan (1) (HFpEF) heart failure with preserved ejection fraction: (2) Hypervolemia: (3) Acute renal insufficiency: (4) Coronary artery disease: (5) S/P angioplasty with stent: (6) Diabetes mellitus type 2 with complications: (7) Below-knee amputation: (8) Hypertension: Plan Complex patient with multiple comorbidities admitted with nonspecific symptoms after stenting of 2 coronary arteries followed 1 month later by recent left BKA. Fortunately, no evidence of acute stent thrombosis or significant myocardial ischemia. Continue aspirin and clopidogrel for at least 6 months post stenting (at least 4 months longer). Admission chest x-ray and subsequent chest CT both suggest significant volume overload which appears to be HFpEF given normal systolic function on echocardiogram. She did receive IV fluids during this hospitalization and appears hypervolemic on exam currently. Agree with more aggressive diuresis (IV furosemide) while inpatient, since electrolytes and renal function can be monitored more effectively than any attempts at outpatient diuresis. Indication for carvedilol is uncertain, possibly she had a prior diagnosis of cardiomyopathy, but at this point her LV systolic function is normal and her blood pressure has been borderline hypotensive. Therefore, recommend holding carvedilol and restarting at reduced dose if BP and heart rate rise, or substituting metoprolol if heart rate rises and BP remains normotensive. Given debilitated state, patient will likely need long-term care. Will continue to assist with volume management while she is an inpatient. Dr. Morales will be covering cardiology tomorrow, will ask him to reassess volume status at that time. I will be back on and will check on the patient then as well. 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 She notes that she "feels like crap" with generalized fatigue, dyspnea on minor exertion, but no chest pain, palpitations, presyncope, or syncope. Chest x-ray on admission suggested increased vasculature and chest CT 3 days after admission showed right greater than left pleural effusions and pulmonary infiltrates that are likely congestive heart failure. It appears she received intravenous lactated Ringer's and and normal saline solution between 08/29/2023 and 09/01/2023. Her creatinine increased from 1.18 to 1.51 overnight on 08/31/2023. She received 1 dose of furosemide the evening of 09/02/2023 and is scheduled to receive additional doses today. Troponin minimally elevated with flat curve (range 4157). BNP elevated at 919 on 09/02/2023. Admission ECG showed sinus rhythm at 95 bpm with possible old septal infarct and PVCs. 2 subsequent ECGs were unchanged. An echocardiogram shortly after admission showed EF 55 to 60%, on my review the mitral regurgitation is likely at least moderate and inferior vena cava was dilated. At the time my evaluation this morning, other than fatigue, she had no major somatic complaints at rest. Allergies Allergy/AdvReac Type Severity Reaction Status Date / Time morphine Allergy Intermediate Rash Verified 08/28/23 18:54 mushroom Allergy Intermediate VOMITING/DI Verified 08/28/23 18:54 ARRHEA Home Medications Medication Instructions Recorded Confirmed Type atorvastatin 80 mg tablet 80 mg PO DAILY 12/28/22 08/28/23 History citalopram 40 mg tablet 40 mg PO DAILY 12/28/22 08/28/23 History hydroxyzine HCl 50 mg tablet 50 mg PO TID PRN Itching 12/28/22 08/28/23 History lancets 33 gauge (OneTouch Delica 12/28/22 04/17/23 History Lancets) pen needle, diabetic 32 gauge x 12/28/22 04/17/23 History 1/4" (Novofine 32) aspirin 81 mg tablet,delayed 81 mg PO DAILY 04/17/23 08/28/23 History release (Adult Low Dose Aspirin) OneTouch Verio Flex Start #1 ea 04/18/23 04/18/23 Rx (blood-glucose meter) ViralGainsTouch Verio test strips (blood #200 ea 04/18/23 04/18/23 Rx sugar diagnostic) acetaminophen 325 mg tablet 650 mg PO Q6H PRN Pain (Scale 08/28/23 08/28/23 History Score 4-6) bupropion HCl 150 mg tablet,12 hr 150 mg PO BID 08/28/23 08/28/23 History sustained-release carvedilol 12.5 mg tablet 12.5 mg PO BID 08/28/23 08/28/23 History clopidogrel 75 mg tablet (Plavix) 75 mg PO DAILY 08/28/23 08/28/23 History furosemide 40 mg tablet 40 mg PO DAILY 08/28/23 08/28/23 History gabapentin 100 mg capsule 100 mg PO QID 08/28/23 08/28/23 History insulin glargine 100 unit/mL 40 unit subcut BID 08/28/23 08/28/23 History subcutaneous solution polyethylene glycol 3350 17 gram 17 g PO DAILY 08/28/23 08/28/23 History oral powder packet (Miralax) promethazine 12.5 mg tablet 25 mg PO Q6H PRN NAUSEA/VOMITING 08/28/23 08/28/23 History Patient History Medical History Mammography less than 12 months ago Amputated toe Social History Smoking Status: Current every day smoker Tobacco Type: Cigarettes Cigarettes Per Day: a couple cigarettes a day; Hx Alcohol Use: Yes Hx Substance Use: No Preferred Language: Uzbek Communication Ability: Effective Byproducts Pump Operator Required: No Beliefs That Will Affect Care: None Current Living Situation: Alone Feels Safe at Home: Yes Safety Concerns: Feels Safe At This Time Assistive Devices: Cane, Walker and Wheelchair Assistive Devices Comment: prosthesis right lower extremity Physical Exam Physical Exam: Adult white female with bilateral BKA's in no distress. Weight is up 4 pounds from admission but may be unreliable. BP normotensive at 115/66 mmHg. Pulse 90 and regular with occasional ectopy. Respirations unlabored at 17. Skin: Occasional ecchymoses, no generalized lesions. HEENT: unremarkable. Neck: JVP at the angle of the jaw at 90 degrees with increased respiratory variation, no carotid bruits. Lungs: Good airflow without wheezing, bibasilar crackles. No accessory muscle use. Cardiac: regular rhythm with ectopy, normal S1-2, 2/6 apical holosystolic murmur which is nonradiating, no diastolic murmur. Abdomen: benign. Extremities: Bilateral BKA's, left stump with incision/izaiah intact, no unusual erythema or discharge. Good capillary refill. Neurologic: normal affect and conversation, nonfocal. Results & Data Laboratory Results WBC has been normal, hemoglobin 9.0 today, normal platelet count. Sodium 133, potassium 4.4, BUN 23, creatinine 1.31 (BUN 25/creatinine 1.36 yesterday). Diagnostic Findings ECGs, echo, chest x-ray, CT results as noted in HPI. PG Care Time/CCT Total # of Minutes Spent Total Time Spent with Patient: Total time spent is greater than 50% in coordination of care (as documented) at patient's floor/unit and/or counseling patient: Coding Level of Care Code 18603 IN/OBS CONSULT LVL 4,60M Diagnoses (HFpEF) heart failure with preserved ejection fraction I50.30 Hypervolemia E87.70 Acute renal insufficiency N28.9 Coronary artery disease I25.10 S/P angioplasty with stent Z95.820 Diabetes mellitus type 2 with complications E11.8 Below-knee amputation S88.119A Hypertension I10
[2023-09-03] MEDS: INSULIN ASPART PER UNIT CHARGE SC SCH (16:39)
--- NOTE | 2023-09-03 16:46 | Electrocardiogram Report ---
Test Reason : Blood Pressure : / mmHG Vent. Rate : 083 BPM Atrial Rate : 083 BPM P-R Int : 186 ms QRS Dur : 104 ms QT Int : 412 ms P-R-T Axes : 046 073 058 degrees QTc Int : 484 ms Sinus rhythm with frequent Premature ventricular complexes Low voltage QRS Nonspecific T wave abnormality Prolonged QT Abnormal ECG When compared with ECG of 01-SEP-2023 06:46, No significant change was found Confirmed by Lm Pruitt ([id number]) on 09/03/2023 4:46:16 PM Referred By: REFERRED SELF Confirmed By:Lm Pruitt
[2023-09-03] MEDS: LANTUS PER UNIT CHARGE SC SCH (21:28)
[2023-09-03] MEDS: diphenhydrAMINE Capsule 25 MG CAP PO PRN (21:48)
[2023-09-04 06:59] LABS: Hematocrit (blood only) 28.3 % (37.0-47.0); Hemoglobin 9.3 g/dl (12.0-16.0); Mean Corpuscular Hemoglobin 29.5 pg (25.0-34.0); Mean Corpuscular Hgb Conc 32.9 g/dL (32.0-36.0); Mean Corpuscular Volume 89.8 fL (80.0-100.0); Mean Platelet Volume 12.2 fL (9.4-12.4); Platelet Count 195 K/uL (130-400); RDW Coefficient of Variation 15.4 % (11.5-14.5); RDW Standard Deviation 50.2 fL (36.4-46.3); Red Blood Count 3.15 M/uL (4.20-5.40); White Blood Count 5.95 K/ul (4.8-10.8)
[2023-09-04 07:23] LABS: BUN Creatinine Ratio 17.5 (10-20); Calcium 8.6 mg/dl (8.6-10.3); Creatinine Clr Calc Pharmacy 74.6 ml/min; Est GFR (African American) 58.3 ml/min; Est GFR (Non-African American) 50.3 ml/min; Potassium 3.5 mmol/L (3.5-5.1)
[2023-09-04] MEDS ORDERED: ALBUT/IPRATROP 3MG/0.5MG NEB 3 ML VIAL NEB PRN (07:29)
[2023-09-04] MEDS: FUROSEMIDE 40 MG/4 ML VIAL IV SCH (08:30)
--- NOTE | 2023-09-04 11:53 | Hospitalist Progress Note ---
Date of Service September 04, 2023 Assessment & Plan (1) Abdominal pain: Plan: Pt is a 48 yo female with PMH of long-standing uncontrolled DM s/p multiple [place] w/ stent and bilateral BKA (most recent Jul 2023) and depression presenting to the hospital d/t N/V/D and weakness. AMS - pt with code purple 09/02 - lab work WNL; head CT neg - pt back to her baseline; suspect secondary to low BS in addition to hydroxyzine dose - will resume gabapentin at 100 mg BID; continue w/o hydroxyzine Acute hypoxia/SOB - unlikely to be cardiac in origin: troponin elevated but stable and EKG WNL - CTA neg for PE, but did show multifocal disease w/ bilateral pleural effusions - d/c ABX as infectious source unlikely - pt continues to diurese well; net neg 5L - continue with lasix 40 mg IV BID HERO - resolving with continued diuresis Viral gastroenteritis - CTAP neg for acute process - pt is hemodynamically stable, afebrile, and without leukocytosis - hx of C. diff; gene positive, toxin neg- no acute infection - continue supportive care with fluids PRN, zofran PRN for nausea - expect self resolution Chronic deconditioning - pt has not been able to accomplish ADLs especially following her second BKA in Jul 2023; she lives alone with generalized weakness and multiple comorbidities - nursing spoke with pt's surgeon who recommended staple removal 09/06 - PT/OT consulted; case management following for SNF placement DM - poorly controlled DM2 w/ multiple complications including nephropathy and neuropathy along with PAD s/p bilateral BKA - current A1C 7.9% - continue celexa for neuropathy; resume gabapentin at lower dose - continue lantus and SSI while hospitalized - recommend close f/u with endocrine as outpatient CAD - s/p 4 stents - cardiac work up as above - echocardiogram done and revealed no regional wall abnormalities with normal left ventricular systolic function and EF 55-60% - continue carvedilol, Plavix, aspirin, and atorvastatin HLD - continue atorvastatin HTN - continue carvedilol Electrolyte derangements - hypokalemia, hyponatremia - replete as necessary Depression with anxiety - continue celexa and wellbutrin - hold home hydroxyzine in the setting of AMS as above Chronic anemia - Hgb appears stable; baseline ~9.0 Diet: DM2 Code status: Full DVT prophylaxis: Lovenox BID Dispo: will need SNF/acute rehab upon discharge (2) Diarrhea: (3) Unable to care for self: (4) Diabetes mellitus type 2 with complications: (5) Coronary artery disease: (6) Hyperlipidemia: (7) Hypertension: (8) Depression with anxiety: (9) Pulmonary vascular congestion: (10) Hypokalemia: (11) Hyponatremia: (12) Anemia: Admission and Anticipated Discharge Date Admission Date: August 28, 2023 Supervising Physician Co-Signing Physician Notes Resident Physician Supervision Note: I independently interviewed and examined the patient and verified the iverson history and physical, reviewed labs and image studies and agree with resident findings and care plan. No new concern. Urinating a lot of lasix dose. No shortness of breath/chest pain Vitals noted, Improving air entry. RRR. Acute hypoxic resp failure due to HFpEF - neg 5L. Off O2. continue with aggressive diuresis. -Continue IV lasix 40mgs bid. follow renal function. CAD - BP on lower side - holding carvedilol and resume once well diuresed at a lower dose or switch to metoprolol. Metabolic encephalopathy - Resolved. Sec to hypoglycemia and hydroxyzine. Mentation clear. -Holding hydroxyzine. -For Hypoglycemic episode - Glargine dose dropped from 25 bid to 10 bid. s/p BKA - contact made with surgeon. will needs izaiah removed if stays hospitalized on 09/06. abdominal pain/diarrhea - resolved. fatigue - PT/OT eval and treat will need SNF/placement once medically stable Enoxaparin Subjective Pt breathing much better today. Awake and sitting at the side of the bed. Review of Systems Review of Systems: As per HPI Physical Exam Physical Exam: Constitutional: well appearing, no acute distress HEENT: normocephalic, no conjunctival injection CV: RRR, no murmur Respiratory: CTA bilaterally. No rhonchi, wheezes, or crackles. No increased work of breathing MSK: no gross deformities noted Skin: warm, dry, no rashes Neuro: alert, oriented, no FND noted Psych: mood and affect congruent Results & Data Results & Data Vital Signs (Past 12 Hours) Vital Signs Temp Pulse Pulse Resp BP Pulse Ox O2 Del Method 09/04/23 11:51 37.1 C 94 H 16 102/81 96 Room Air 09/04/23 08:39 Room Air 09/04/23 08:16 36.8 C 88 18 102/81 95 Room Air 09/04/23 08:12 90 09/04/23 07:11 91 H 22 94 Room Air 09/04/23 03:40 37.4 C 83 16 109/83 92 Room Air 09/04/23 00:26 84 15 100 O2 Flow Rate 09/04/23 11:51 09/04/23 08:39 09/04/23 08:16 09/04/23 08:12 09/04/23 07:11 09/04/23 03:40 09/04/23 00:26 2 Resident Activity Tracking Resident Involvement: Resident Care Provided Care Provided: Adult Hospital Medicine
--- NOTE | 2023-09-04 16:21 | Cardiology Progress Note ---
Date of Service September 04, 2023 Assessment & Plan (1) (HFpEF) heart failure with preserved ejection fraction: (2) Acute renal insufficiency: (3) Coronary artery disease: (4) Below-knee amputation: (5) Hypertension: Plan 1. Congestive heart failure: She seems to be improved in this regard, I believe she has diuresed well although we do not have a weight today. She feels that she has not clinically she seems better. I suspect she still has some fluid however and I would continue diuresis. 2. Kidney disease: Her creatinine is slightly improved today, now within normal limits. This is consistent with diuresis and I would continue. 3. Coronary disease: Clinically stable with no chest discomfort 4. Leg amputation: She appears to be recovering well at this point and is in good spirits. 5. Hypertension: Her blood pressure has been quite good, some blood pressures are little bit low but overall she is holding her pressures well with the diuresis. Admission and Anticipated Discharge Date Admission Date: August 28, 2023 Subjective She seems to be in good spirits and has no cardiovascular complaints today. She denies shortness of breath but of course has not been active. No palpitations or chest discomfort. Physical Exam Physical Exam: Constitutional: Alert, cooperative and in no distress. HEENT: Unremarkable Neck: No jugular venous distention, carotid pulses are normal and equal bilaterally without bruits. Pulmonary: Rales at bases bilaterally. Cardiac: Regular rhythm with a grade 2/6 holosystolic murmur at the apex, no gallop or rub. Abdomen: Soft, nontender with normal bowel sounds. Extremities: Bilateral lower extremity amputations. Incisions appear to be healing well. Neurologic: No focal finding on limited exam Skin: No rash, ecchymoses or petechiae. Results & Data Vital Signs (Past 12 Hours) Vital Signs Temp Pulse Pulse Resp BP Pulse Ox O2 Del Method 09/04/23 15:37 91 H 09/04/23 15:24 36.6 C 90 18 111/74 97 Room Air 09/04/23 11:51 37.1 C 94 H 16 102/81 96 Room Air 09/04/23 08:39 Room Air 09/04/23 08:16 36.8 C 88 18 102/81 95 Room Air 09/04/23 08:12 90 09/04/23 07:11 91 H 22 94 Room Air Laboratory Results CBC 09/04/23 Range/Units 06:05 WBC 5.95 (4.8-10.8) K/ul RBC 3.15 L (4.20-5.40) M/uL Hgb 9.3 L (12.0-16.0) g/dl Hct 28.3 L (37.0-47.0) % Plt Count 195 (130-400) K/uL Comprehensive Metabolic Panel 09/04/23 Range/Units 06:05 Sodium 135 L (136-145) mmol/L Potassium 3.5 D (3.5-5.1) mmol/L Chloride 101 (98-107) mmol/L Carbon Dioxide 25 (21-32) mmol/L BUN 22 (6-23) mg/dl Creatinine 1.26 H (0.6-1.2) mg/dl Glucose 131 H (70-99(Fasting)) mg/dl Calcium 8.6 (8.6-10.3) mg/dl Intake and Output 09/04/23 09/04/23 09/04/23 06:59 14:59 22:59 Intake Total 200 / 650 730 / 730 Output Total 800 / 2700 925 / 925 Balance -600 / -2050 -195 / -195 Intake: Oral 200 / 650 730 / 730 Output: Urine 800 / 2700 Urine Amount (Catheter) 925 / 925 External 925 / 925 Diagnostic Findings Telemetry: Sinus rhythm, rate 70 to 90 bpm for the most part. PG Care Time/CCT Total # of Minutes Spent Total Time Spent with Patient: Total time spent is greater than 50% in coordination of care (as documented) at patient's floor/unit and/or counseling patient: Coding Level of Care Code 97247 SUB INP/OBS CARE 2/35MIN Diagnoses (HFpEF) heart failure with preserved ejection fraction I50.30 Acute renal insufficiency N28.9 Coronary artery disease I25.10 Below-knee amputation S88.119A Hypertension I10
[2023-09-04] MEDS: GABAPENTIN 100 MG CAP PO SCH (20:13)
[2023-09-05 06:25] LABS: Hematocrit (blood only) 27.9 % (37.0-47.0); Hemoglobin 9.2 g/dl (12.0-16.0); Mean Corpuscular Hemoglobin 29.4 pg (25.0-34.0); Mean Corpuscular Volume 89.1 fL (80.0-100.0); Platelet Count 192 K/uL (130-400); RDW Coefficient of Variation 15.3 % (11.5-14.5); RDW Standard Deviation 49.3 fL (36.4-46.3); Red Blood Count 3.13 M/uL (4.20-5.40)
[2023-09-05 06:51] LABS: BUN Creatinine Ratio 18.5 (10-20); Calcium 8.6 mg/dl (8.6-10.3); Est GFR (African American) 70.3 ml/min; Est GFR (Non-African American) 60.7 ml/min; Potassium 3.7 mmol/L (3.5-5.1)
--- NOTE | 2023-09-05 07:08 | Hospitalist Progress Note ---
Date of Service September 05, 2023 Assessment & Plan (1) Abdominal pain: Plan: Pt is a 48 yo female with PMH of long-standing uncontrolled DM s/p multiple [place] w/ stent and bilateral BKA (most recent Jul 2023) and depression presenting to the hospital d/t N/V/D and weakness. AMS - pt with code purple 09/02 - lab work WNL; head CT neg - pt back to her baseline; suspect secondary to low BS in addition to hydroxyzine dose - continue gabapentin at 100 mg BID; continue w/o hydroxyzine Acute hypoxia/SOB - unlikely to be cardiac in origin: troponin elevated but stable and EKG WNL - CTA neg for PE, but did show multifocal disease w/ bilateral pleural effusions - d/c ABX as infectious source unlikely - pt continues to diurese well; net neg 7L - continue with lasix 40 mg IV BID HERO - resolving with continued diuresis Viral gastroenteritis - CTAP neg for acute process - pt is hemodynamically stable, afebrile, and without leukocytosis - hx of C. diff; gene positive, toxin neg- no acute infection - continue supportive care with fluids PRN, zofran PRN for nausea - expect self resolution Chronic deconditioning - pt has not been able to accomplish ADLs especially following her second BKA in Jul 2023; she lives alone with generalized weakness and multiple comorbidities - nursing spoke with pt's surgeon who recommended staple removal 09/06 - PT/OT consulted; case management following for SNF placement DM - poorly controlled DM2 w/ multiple complications including nephropathy and neuropathy along with PAD s/p bilateral BKA - current A1C 7.9% - continue celexa for neuropathy; resume gabapentin at lower dose - continue lantus and SSI while hospitalized - recommend close f/u with endocrine as outpatient CAD - s/p 4 stents - cardiac work up as above - echocardiogram done and revealed no regional wall abnormalities with normal left ventricular systolic function and EF 55-60% - continue carvedilol, Plavix, aspirin, and atorvastatin HLD - continue atorvastatin HTN - continue carvedilol Electrolyte derangements - hypokalemia, hyponatremia - replete as necessary Depression with anxiety - continue celexa and wellbutrin - hold home hydroxyzine in the setting of AMS as above Chronic anemia - Hgb appears stable; baseline ~9.0 Diet: DM2 Code status: Full DVT prophylaxis: Lovenox BID Dispo: will need SNF/acute rehab upon discharge (2) Diarrhea: (3) Unable to care for self: (4) Diabetes mellitus type 2 with complications: (5) Coronary artery disease: (6) Hyperlipidemia: (7) Hypertension: (8) Depression with anxiety: (9) Pulmonary vascular congestion: (10) Hypokalemia: (11) Hyponatremia: (12) Anemia: Admission and Anticipated Discharge Date Admission Date: August 28, 2023 Supervising Physician Co-Signing Physician Notes Resident Physician Supervision Note: I independently interviewed and examined the patient and verified the iverson history and physical, reviewed labs and image studies and agree with resident findings and care plan. No new concern. No shortness of breath/chest pain Vitals noted, Improving air entry. RRR. Acute hypoxic resp failure due to HFpEF - neg 7L. Off O2. continue with aggressive diuresis. -Continue IV lasix 40mgs bid. follow renal function. CAD - BP on lower side - holding carvedilol and resume once well diuresed at a lower dose or switch to metoprolol. DM with hypoglycemic event - Glargine dose dropped from 25 bid to 10 bid. s/p BKA - contact made with surgeon. will needs izaiah removed if stays hospitalized on 09/06. abdominal pain/diarrhea - resolved. fatigue - PT/OT eval and treat will need SNF/placement once medically stable Enoxaparin Subjective Pt feeling well this AM. No concerns with her breathing. No new concerns. Review of Systems Review of Systems: As per HPI Physical Exam Physical Exam: Constitutional: well appearing, no acute distress HEENT: normocephalic, no conjunctival injection CV: regular rhythm, regular rate, no murmur, no LE edema Respiratory: Clear to auscultation bilaterally. No rhonchi, wheezes, or crackles. No increased work of breathing MSK: bilateral BKA noted Skin: warm, dry, no rashes Neuro: alert, oriented, no FND noted Results & Data Results & Data Vital Signs (Past 12 Hours) Vital Signs Temp Pulse Pulse Resp BP Pulse Ox O2 Del Method 09/05/23 03:36 36.9 C 86 18 118/74 95 CPAP 09/04/23 23:11 36.5 C 89 20 115/91 94 CPAP 09/04/23 22:42 90 16 97 09/04/23 19:43 37.5 C 91 H 20 115/89 95 Room Air O2 Flow Rate 09/05/23 03:36 09/04/23 23:11 09/04/23 22:42 3 09/04/23 19:43 Resident Activity Tracking Resident Involvement: Resident Care Provided Care Provided: Adult Hospital Medicine
--- NOTE | 2023-09-05 12:26 | Cardiology Progress Note ---
Date of Service September 05, 2023 Assessment & Plan (1) (HFpEF) heart failure with preserved ejection fraction: (2) Acute renal insufficiency: (3) Coronary artery disease: (4) S/P angioplasty with stent: (5) Below-knee amputation: (6) Hypertension: Plan Renal function has improved with diuresis. She appears to be doing well and is probably euvolemic. Could change furosemide back to her baseline 40 mg p.o. daily. Given normotensive BP and normal LV systolic function, would continue to hold carvedilol in the absence of recurrent hypertension. No evidence of myocardial ischemia status post fairly recent stenting of johnnie nary arteries. Ensure that she continues both aspirin and clopidogrel upon discharge (for minimum of 6 months post stenting). Cardiac status and hemodynamics appear favorable, will sign off. Please contact Dr. Morales if clinical status changes or new issues arise. Thank you. Admission and Anticipated Discharge Date Admission Date: August 28, 2023 Subjective She feels significantly better over the past couple of days. No dyspnea at rest, she remains inactive due to recent BKA surgery. No chest pain, palpitations, or lightheadedness. Input/output -1994 mL Telemetry shows sinus rhythm at 80 to 90 bpm with sporadic PVCs but no dysrhythmias. Physical Exam Physical Exam: No distress. Weight unreliable (bed scale). BP normotensive Pulse 90 bpm and regular. Respirations 18 and unlabored. Neck veins appear nonelevated Results & Data Vital Signs (Past 12 Hours) Vital Signs Temp Pulse Pulse Resp BP Pulse Ox O2 Del Method 09/05/23 11:21 98.1 F 91 H 18 123/81 96 Room Air 09/05/23 09:55 87 09/05/23 07:29 97.9 F 90 21 116/91 93 Room Air 09/05/23 03:36 98.4 F 86 18 118/74 95 CPAP Laboratory Results Sodium 134, potassium 3.7, BUN 20, creatinine 1.08 (BUN/creatinine 22/1.26 yesterday). PG Care Time/CCT Total # of Minutes Spent Total Time Spent with Patient: Total time spent is greater than 50% in coordination of care (as documented) at patient's floor/unit and/or counseling patient: Coding Level of Care Code 50481 SUB INP/OBS CARE 2/35MIN Diagnoses (HFpEF) heart failure with preserved ejection fraction I50.30 Acute renal insufficiency N28.9 Coronary artery disease I25.10 S/P angioplasty with stent Z95.820 Below-knee amputation S88.119A Hypertension I10
[2023-09-06 07:43] LABS: Hematocrit (blood only) 29.6 % (37.0-47.0); Hemoglobin 9.5 g/dl (12.0-16.0); Mean Corpuscular Hemoglobin 29.1 pg (25.0-34.0); Mean Corpuscular Hgb Conc 32.1 g/dL (32.0-36.0); Mean Corpuscular Volume 90.8 fL (80.0-100.0); Mean Platelet Volume 11.9 fL (9.4-12.4); Platelet Count 201 K/uL (130-400); RDW Coefficient of Variation 15.2 % (11.5-14.5); RDW Standard Deviation 50.1 fL (36.4-46.3); Red Blood Count 3.26 M/uL (4.20-5.40); White Blood Count 6.67 K/ul (4.8-10.8)
[2023-09-06 08:07] LABS: BUN Creatinine Ratio 15.1 (10-20); Calcium 8.8 mg/dl (8.6-10.3); Creatinine Clr Calc Pharmacy 86.6 ml/min; Est GFR (African American) 71.9 ml/min; Potassium 3.7 mmol/L (3.5-5.1)
[2023-09-06] MEDS: FUROSEMIDE 40 MG TAB PO SCH (09:27)
--- NOTE | 2023-09-06 12:39 | Discharge Summary ---
Date of Service September 06, 2023 Admission HPI Per Admitting Provider Pt is 48 yo F with PMH IDDM2 w/ nephropathy + neuropathy, PAD s/p b/l BKA (R 2019, L 07/2023), HTN, HLD, CAD s/p PCI w/ TARIK x4, depression, anxiety, morbid obesity presenting with generalized weakness. Pt reports onset of generalized weakness and pain, diffuse mild abdominal pain and watery diarrhea on day prior. She did recently have L BKA done at end of 07/2023 and was discharged from rehab to home, also had NC s/p PCI w/ stent placement x2 about 1 month prior. Pt states she has not been feeling well for quite some time but her GI symptoms are new and this is primarily why she came to ER. Denies fever, chills, chest pain, dyspnea. Pt arrived to ER hemodynamically stable. Initial evaluation significant for Hgb 10.5, Na 132, K 3.3, BSG 256. UA grossly infected though without bacteria, containing epithelial cells. RVP negative. CXR w/ mild cardiomegaly and interstitial thickening, pulmonary vascular congestion. No ER interventions done. At present, pt reports no new symptoms. Admission Exam Per Admitting Provider General: tired-appearing, no acute distress HEENT: PERRL, EOMI, conjunctivae clear without injection, anicteric sclerae, dry mucous membranes, clear oropharynx without exudate or erythema Neck: supple, trachea midline, no thyromegaly, no JVD, no cervical lymphadenopathy CV: RRR, normal S1 and S2, no murmurs Resp: Clear breath sounds b/l, no increased work of breathing, no crackles or wheezes Abd: Soft, mildly tender to LLQ, nondistended, no guarding or rebound, no hepatosplenomegaly MSK: B/l BKA with RLE stump covered in dressing, L BKA exposed and clean, dry, intact wound + sutures without bleeding Neuro: AOx3 Skin: no rashes or lesions, warm and dry Principal Diagnosis deconditioning, fluid overload, viral gastroenteritis Discharge Exam Constitutional: well appearing, no acute distress HEENT: normocephalic, no conjunctival injection CV: regular rhythm, regular rate, no murmur, no LE edema Respiratory: Clear to auscultation bilaterally. No rhonchi, wheezes, or crackles. No increased work of breathing GI: soft, nondistended, positive bowel sounds MSK: bilateral BKA noted; some erythema surrounding recent left BKA incision consistent with granulation/healing tissue. No purulent discharge noted. Skin: warm, dry, no rashes Neuro: alert, oriented, no FND noted Discharge Data Allergies Allergy/AdvReac Type Severity Reaction Status Date / Time morphine Allergy Intermediate Rash Verified 08/28/23 18:54 mushroom Allergy Intermediate VOMITING/DI Verified 08/28/23 18:54 ARRHEA Consultations 08/28/23 21:28 ED Decision to Admit Stat 09/02/23 16:31 Consult Cardiology Routine Ordered Studies 08/28/23 23:38 CT Abd and Pelvis [CT abd pelvis IV con only] Routine IMPRESSION: 1. No acute abdominal or pelvic process. 2. Smooth septal thickening in the lung bases concerning for fluid overload. 3. Peripheral nodular densities in the right middle lobe measuring up to 0.9 cm. 08/31/23 17:51 CT angio chest PE protocol Urgent IMPRESSION: 1. No pulmonary embolus or aortic dissection. 2. Extensive bilateral reticulonodular pattern, with thickening of interstitial septa, multiple pulmonary nodules and patchy coarse and round opacities, confluent and more significant on the right compared to the left noted. Differential diagnosis is wide and includes diffuse multifocal pneumonitis with metastatic disease, carcinomatosis, or superimposed congestive heart failure/pulmonary edema not excluded. 3. Bilateral pleural effusions, right larger than left. 09/02/23 19:11 CT head/brain wo con Urgent IMPRESSION: 1. No acute intracranial abnormality. 2. Bilateral mastoid effusions. Hospital Course (1) Abdominal pain: Pt is a 48 yo female with PMH of long-standing uncontrolled DM s/p multiple NC w/ stent and bilateral BKA (most recent Jul 2023) and depression presenting to the hospital d/t N/V/D and weakness. Depression w/ passive SI - chronic concern for pt; concerns voiced from pt's son - pt follows with PCP, psychiatrist, therapist, and case management manager as outpatient - pt originally declined psych consult, but then did want to talk to someone; psych liaison contacted - recommend continuation following with all of her mental health support team as above AMS - pt with code purple 09/02 - lab work WNL; head CT neg - pt back to her baseline mental status; suspect secondary to low BS in addition to hydroxyzine dose - continue gabapentin at lower dose 100 mg BID (decreased from QID); continue w/o hydroxyzine Acute hypoxia/SOB - unlikely to be cardiac in origin: troponin elevated but stable and EKG WNL - CTA neg for PE, but did show multifocal disease w/ bilateral pleural effusions - d/c ABX as infectious source unlikely - pt diuresed well with IV lasix; net neg 9L - back to baseline respiratory status prior to discharge - continue home lasix 40 mg PO daily HERO- resolved - resolved with diuresis Viral gastroenteritis - CTAP neg for acute process - pt is hemodynamically stable, afebrile, and without leukocytosis - hx of C. diff; gene positive, toxin neg- no acute infection - continue supportive care with phenergan PRN for nausea - expect self resolution Chronic deconditioning - pt has not been able to accomplish ADLs especially following her second BKA in Jul 2023; she lives alone with generalized weakness and multiple comorbidities - PT/OT consulted who recommended SNF placement; discharge to [facility] s/p left BKA - izaiah removed at 4 weeks post op per recommendation of surgeon - izaiah removed 09/06 and steri strips applied DM - poorly controlled DM2 w/ multiple complications including nephropathy and neuropathy along with PAD s/p bilateral BKA - current A1C 7.9% - continue celexa for neuropathy; resume gabapentin at lower dose as above - resume home insulin regimen - recommend close f/u with endocrine as outpatient CAD - s/p 4 stents - echocardiogram done and revealed no regional wall abnormalities with normal left ventricular systolic function and EF 55-60% - continue home plavix, aspirin, and atorvastatin HLD - continue atorvastatin HTN - well controlled while hospitalized - hold carvedilol in the setting of controlled BP and normally functioning LV Electrolyte derangements - hypokalemia, hyponatremia - repleted as necessary Depression with anxiety - continue celexa and wellbutrin - hold home hydroxyzine in the setting of AMS as above Chronic anemia - Hgb appears stable; baseline ~9.0 Diet: DM2, heart healthy, low sodium Code status: Full DVT prophylaxis: Lovenox BID Dispo: [facility] (2) Diarrhea: (3) Unable to care for self: (4) Diabetes mellitus type 2 with complications: (5) Coronary artery disease: (6) Hyperlipidemia: (7) Hypertension: (8) Depression with anxiety: (9) Pulmonary vascular congestion: (10) Hypokalemia: (11) Hyponatremia: (12) Anemia: Total Time Total Time Spent Total Time Spent (In Minutes): as per attending attestation Discharge Plan Discharge Items Patient Disposition: Transfer [facility] Reason For Visit: MALAISE Discharge Diagnosis: deconditioning, fluid overload Activity: Per Instructions section Non-emergency contact: Primary Care Provider Call non-emergency contact if: you have any medication questions, your symptoms worsen, your wound has increased redness and your wound has increased drainage Follow-up/Referrals: Ryland Jeffrey DO [Primary Care Provider] - Diet: Carb Consistent or DM2, Heart Healthy and Low Sodium (2gm) Addtl Attending Provider Instructions: Pt is a 48 yo female with PMH of long-standing uncontrolled DM s/p multiple NC w/ stent and bilateral BKA (most recent Jul 2023) and depression presenting to the hospital d/t N/V/D and weakness. Med changes: - stop hydroxyzine - stop carvedilol - decrease gabapentin 100mg from QID to BID Depression w/ passive SI - chronic concern for pt; concerns voiced from pt's son - pt follows with PCP, psychiatrist, therapist, and case management manager as outpatient - pt originally declined psych consult, but then did want to talk to someone so the psych liaison was contacted - recommend continuation following with all of her mental health support team as above AMS - pt with code purple 09/02 - lab work WNL; head CT neg - pt back to her baseline mental status; suspect secondary to low BS in addition to hydroxyzine dose - continue gabapentin at lower dose 100 mg BID (decreased from QID); continue w/o hydroxyzine Acute hypoxia/SOB - unlikely to be cardiac in origin: troponin elevated but stable and EKG WNL - CTA neg for PE, but did show multifocal disease w/ bilateral pleural effusions - d/c ABX as infectious source unlikely - pt diuresed well with IV lasix; net neg 9L - back to baseline respiratory status prior to discharge - continue home lasix 40 mg PO daily HERO- resolved - resolved with diuresis Viral gastroenteritis - CTAP neg for acute process - pt is hemodynamically stable, afebrile, and without leukocytosis - hx of C. diff; gene positive, toxin neg- no acute infection - continue supportive care with phenergan PRN for nausea - expect self resolution Chronic deconditioning - pt has not been able to accomplish ADLs especially following her second BKA in Jul 2023; she lives alone with generalized weakness and multiple comorbidities - PT/OT consulted who recommended SNF placement; discharge to [facility] s/p left BKA - izaiah removed at 4 weeks post op per recommendation of surgeon - izaiah removed 09/06 and steri strips applied DM - poorly controlled DM2 w/ multiple complications including nephropathy and neuropathy along with PAD s/p bilateral BKA - current A1C 7.9% - continue celexa for neuropathy; resume gabapentin at lower dose as above - resume home insulin regimen - recommend close f/u with endocrine as outpatient CAD - s/p 4 stents - echocardiogram done and revealed no regional wall abnormalities with normal left ventricular systolic function and EF 55-60% - continue home plavix, aspirin, and atorvastatin HLD - continue atorvastatin HTN - well controlled while hospitalized - hold carvedilol in the setting of controlled BP and normally functioning LV Electrolyte derangements - hypokalemia, hyponatremia - repleted as necessary Depression with anxiety - continue celexa and wellbutrin - hold home hydroxyzine in the setting of AMS as above Chronic anemia - Hgb appears stable; baseline ~9.0 Diet: DM2, heart healthy, low sodium Code status: Full DVT prophylaxis: Lovenox BID Dispo: [facility] Pending Studies at Discharge: No Stand-Alone Forms: My [employer] Skilled Items Patient informed of condition?: Yes DNR: No Discharge Level of Care: Skilled Communicable Disease: No Discharge Prognosis: Stable Lines: None Urinary Catheter: No Medications and DC Order Prescriptions: New metoprolol tartrate 25 mg tablet 25 mg PO BID Qty: 60 0RF Continued aspirin [Adult Low Dose Aspirin] 81 mg tablet,delayed release (DR/EC) 81 mg PO DAILY (DME) blood-glucose meter [OneTouch Verio Flex Start] Kit See Rx Instructions .ROUTE .MEDSUPPLY Qty: 1 0RF Rx Instructions: As directed (DME) OneTouch Verio test strips Strip See Rx Instructions .ROUTE .MEDSUPPLY Qty: 200 3RF Rx Instructions: test 2 times daily citalopram 40 mg tablet 40 mg PO DAILY (DME) pen needle, diabetic [Novofine 32] 32 gauge x 1/4" needle See Rx Instructions .Route Rx Instructions: use 5 x daily (DME) lancets [OneTouch Delica Lancets] 33 gauge misc See Rx Instructions .Route Rx Instructions: test blood sugar 3 x daily atorvastatin 80 mg tablet 80 mg PO DAILY furosemide 40 mg tablet 40 mg PO DAILY bupropion HCl 150 mg tablet sustained-release 12 hr 150 mg PO BID acetaminophen 325 mg tablet 650 mg PO Q6H PRN (Reason: Pain (Scale Score 4-6)) polyethylene glycol 3350 [Miralax] 17 gram Powder In Packet 17 g PO DAILY promethazine 12.5 mg tablet 25 mg PO Q6H PRN (Reason: NAUSEA/VOMITING) clopidogrel [Plavix] 75 mg Tablet 75 mg PO DAILY Changed gabapentin 100 mg Capsule 100 mg PO BID Qty: 60 1RF insulin glargine 100 unit/mL solution 10 unit SUBCUT BID 30 Days Qty: 0 0RF Held hydroxyzine HCl 50 mg tablet 50 mg PO TID PRN (Reason: Itching) Hold Instructions: discuss restarting this medication with your PCP or psychiatrist carvedilol 12.5 mg tablet 12.5 mg PO BID Hold Instructions: discuss restarting this medication with your PCP Discharge Orders: Discharge Order (Routine); Ordered 09/06/23 Ordered By: Zaina Rodriguez/Other Patient Handouts: Managing Type 2 Diabetes Admission Data Admit Date/Time: 08/28/23 23:23 Attending Provider: Stacy Lee Admit Provider: Renu Gale Primary Care Provider: Ryland Jeffrey Other Providers: Christopher Bennett Charles C. Other Interventions: Discharge Summary Assessment (RN) Last Done: 09/06/23 13:55 Supervising Physician Co-Signing Physician Notes Resident Physician Supervision Note: I independently interviewed and examined the patient and verified the iverson history and physical, reviewed labs and image studies and agree with resident findings and care plan. No new concern. No shortness of breath/chest pain Vitals noted, Alert. Good eye contact. CTA, RRR. Acute hypoxic resp failure due to acute HFpEF - neg 9L with aggressive diuresis. Off O2. -Renal function stays stable. -Home on 40 mgs lasix PO daily -dietary salt restriction. CAD - BP on lower side - held carvedilol due to low bp while diuresing. start metoprolol 25mgs bid on discharge. DM with hypoglycemic event - Glargine dose dropped to 10units bid Home dose is 40 units bid s/p BKA - contact made with surgeon. izaiah removed on 09/06. outpatient f/u with surgery. abdominal pain/diarrhea - resolved. Depression/Anxiety - continue home meds. to set up outpatient counseling on discharge to home. SNF discharge to [facility]. Resident Activity Tracking Resident Involvement: Resident Care Provided Care Provided: Adult Hospital Medicine
[2023-09-06] MEDS: hydrOXYzine HCl 25 MG TAB PO STA (15:05)
== END 2023-09-06 15:20 | DRG 391 ==
LOC: ED 18:00 → 3W 23:23 → SUATTDRO 23:23 → INTOOBSV 23:23 → 3W 08-29 01:45 → 2N 08-31 22:15 → 2E 09-02 20:13 → 3W 09-05 20:21